=== PATIENT | female | born 1935 | race Caucasian/White ===

== ENCOUNTER → 2016-06-21 | Outpatient (CLI) | payer BC ==
[~2016-06-21] MED LIST: ASCO1CAP3 PO; ASPI81TA28 PO; CALC1TAB25 PO; CLC150 PO; DICL1GEL34 TOP; METO-452 PO; NF656 TD; SIMV-151 PO; TPRSR/25 PO; TROL10LO TOP; TUMERIC PO; VITA400C15 PO; VITACAP37 PO
--- NOTE | 2016-06-21 16:25 | DIAGNOSTIC IMAGING REPORT ---
LEFT HAND MIN 3 VIEWS ROUTINE CLINICAL HISTORY: POLYARTHRALGIA pain COMPARISON: None. DISCUSSION: Generalized degenerative change. Osteopenia. Significant degenerative change of the distal interphalangeal joints as well as the first and to lesser extent second carpometacarpal joint. There is no evidence for soft tissue swelling. IMPRESSION: Considerable degenerative change. Osteopenia. Electronically signed by: Arsh Leonard M.D. 06/21/2016 4:24 PM Dictated Date/Time: 06/21/2016 4:24 PM
--- NOTE | 2016-06-21 16:25 | DIAGNOSTIC IMAGING REPORT ---
RIGHT ELBOW MIN 3 VIEWS ROUTINE CLINICAL HISTORY: Right elbow pain. COMPARISON: None FINDINGS: Alignment of the right elbow is anatomic. There is no joint effusion. No fracture is identified. There is minimal narrowing of the radiocapitellar joint space. There is mild soft tissue swelling overlying olecranon. IMPRESSION: 1. No acute fracture or joint effusion of the right elbow. 2. Minimal soft tissue swelling overlying the olecranon. Electronically signed by: Alvarez Valdez M.D. 06/21/2016 4:24 PM Dictated Date/Time: 06/21/2016 4:23 PM
--- NOTE | 2016-06-21 16:25 | DIAGNOSTIC IMAGING REPORT ---
RIGHT FOREARM 2 VIEWS ROUTINE CLINICAL HISTORY: POLYARTHRALGIA Right pain COMPARISON: None. DISCUSSION: The bones and joint spaces appear intact. There is no evidence of fracture, dislocation or bony disease. There is no evidence for soft tissue swelling. IMPRESSION: Negative study. Electronically signed by: Arsh Leonard M.D. 06/21/2016 4:23 PM Dictated Date/Time: 06/21/2016 4:23 PM
--- NOTE | 2016-06-21 16:26 | DIAGNOSTIC IMAGING REPORT ---
LEFT ELBOW MIN 3 VIEWS ROUTINE CLINICAL HISTORY: Left elbow pain. COMPARISON: None FINDINGS: Alignment of left elbow is anatomic. There is no fracture. There is no evidence for joint effusion. No osseous lesion is identified. There is minimal soft tissue swelling overlying olecranon. IMPRESSION: 1. No acute fracture or joint effusion of the left elbow. 2. Minimal soft tissue swelling overlying the olecranon. Electronically signed by: Alvarez Valdez M.D. 06/21/2016 4:25 PM Dictated Date/Time: 06/21/2016 4:24 PM
--- NOTE | 2016-06-21 16:29 | DIAGNOSTIC IMAGING REPORT ---
RIGHT HAND MIN 3 VIEWS ROUTINE CLINICAL HISTORY: POLYARTHRALGIA Right pain COMPARISON: None. DISCUSSION: Generalized degenerative change. Osteopenia. Considerable degenerative change first as well as second carpal metacarpal joint. There is no evidence for soft tissue swelling. IMPRESSION: Considerable degenerative change. Osteopenia. Electronically signed by: Arsh Leonard M.D. 06/21/2016 4:28 PM Dictated Date/Time: 06/21/2016 4:24 PM
--- NOTE | 2016-06-21 16:30 | DIAGNOSTIC IMAGING REPORT ---
LEFT FOREARM 2 VIEWS ROUTINE CLINICAL HISTORY: POLYARTHRALGIA pain COMPARISON: None. DISCUSSION: The bones and joint spaces appear intact. There is no evidence of fracture, dislocation or bony disease. There is no evidence for soft tissue swelling. IMPRESSION: Negative study. Electronically signed by: Arsh Leonard M.D. 06/21/2016 4:28 PM Dictated Date/Time: 06/21/2016 4:28 PM
== END | disposition home or self-care (01) ==
LOC: C.LABBC 13:23
PROVIDERS: ATTEND Family Medicine
DX: M25.50 Pain in unspecified joint (principal); M19.042 Primary osteoarthritis, left hand; M19.041 Primary osteoarthritis, right hand; M85.842 Other specified disorders of bone density and structure, left hand; M85.841 Other specified disorders of bone density and structure, right hand

== ENCOUNTER 2016-08-15 23:57 | Emergency (ER) | payer BC ==
[~2016-08-15] VITALS: Ht 162.6 cm; Wt 53.6 kg
[~2016-08-15 23:57] MED LIST changes: -CLC150 PO; -METO-452 PO; -NF656 TD; -TROL10LO TOP; -TUMERIC PO; -VITACAP37 PO
[2016-08-16 00:03] VITALS: TEMP 36.5; O2SAT 97; Ht 162.6 cm; Wt 53.6 kg
[2016-08-16 00:28] LABS: BASO % 0.3 %; BASO ABS # 0.02 K/uL (0-0.2); COMPLETE YES; HEMATOCRIT 38.7 % (37-47); IG% 0.3 %; LYMPH % 28.1 %; LYMPH ABS # 1.96 K/uL (1.2-3.4); MEAN CELL VOLUME 91.7 fL (80-100); MEAN CORPUSCULAR HEMOGLOBIN 32.2 pg (25-34); MEAN CORPUSCULAR HGB CONC 35.1 g/dl (32-36); MEAN PLATELET VOLUME 11.4 fL (7.4-10.4); MONO % 11.3 %; PLATELET COUNT 222 K/uL (130-400); RED BLOOD COUNT 4.22 M/uL (4.2-5.4); WHITE BLOOD COUNT 6.98 K/uL (4.8-10.8)
[2016-08-16 00:37] LABS: PROTHROMBIN TIME (PATIENT) 10.6 SECONDS (9.0-12.0)
--- NOTE | 2016-08-16 00:37 | EMERGENCY ROOM VISIT NOTE ---
History Report prepared by Dariela: Jeannie Garner Under the Supervision of: Dr. Yash Sandoval M.D. First contact with patient: 00:07 Chief Complaint: CARDIAC ASSESSMENT Stated Complaint: ABDOMINAL PAIN/CHEST PAIN Nursing Triage Summary: Patient arrived ALS for evaluation of "not feeling well" for days. Patient reports an unusual feeling in stomach, denies it as pain and it sometimes it goes into her chest. Patient had drs liliana scheduled for tomorrow morning but stated she couldn't wait that long. Denies any other symptoms. History of Present Illness The patient is a 81 year old female who presents to the Emergency Room with complaints of intermittent irregular heart beat beginning 2 days ago. The patient states that she has an appointment with Dr. Goodrich tomorrow morning and she called him today when she began to experience symptoms. She notes that he advised that she wait until her appointment tomorrow but after prolonged symptoms she decided to come in to the ED. She reports that over the last 2 days she has been feeling her heart beating irregularly. She notes that she took Eliquis 2 days ago after feeling her atrial fibrillation act up and experienced dizziness that she has had before after taking Eliquis in the hospital. The patient states that she has also been having a discomfort in her stomach and chest that she reports is not painful at all. She notes that she has been taking Metoprolol and is taking Tumeric 3 times a day that she believes may be causing her symptoms. She reports that she got a flu shot 1 year ago that has caused her to have muscular pains as well. She denies any chest pain. Source of History: patient Onset: 2 days ago Position: other (irregular heart beat) Timing: intermittent Associated Symptoms: No chest pain Note: She complains of abdominal discomfort radiating to the chest and dizziness. Review of Systems See HPI for pertinent positives & negatives. A total of 10 systems reviewed and were otherwise negative. Past Medical & Surgical Medical Problems: (1) Aortic Valve Disorder (2) Atrial fibrillation with rapid ventricular response (3) History of repair of coarctation of aorta (4) Hyperlipidemia Nec/Nos (5) Hypertension Nos (6) Patent ductus arteriosus (7) Tubal Ligation Status Family History FHx: cancer FHx: heart disease Social History Smoking Status: Never Smoker Alcohol Use: none Drug Use: none Marital Status: Housing Status: lives alone Occupation Status: retired Current/Historical Medications Scheduled Ascorbic Acid (Vitamin C), 500 MG PO DAILY Aspirin (Aspirin Ec), 81 MG PO DAILY Calcium W/ Magnesium (Calcium Magnesium 750), 1 TAB PO DAILY Metoprolol Succinate (Metoprolol Succinate ER), 25 MG PO BID Vitamin E (E-400), 400 UNITS PO DAILY [Tumeric], Unknown Dose PO DAILY Scheduled PRN Trolamine Salicylate (Aspercreme), 1 APPLN TOP DIRECTED PRN for Pain Allergies Coded Allergies: Epinephrine (Verified Allergy, Severe, TACHYCARDIA, 08/16/16) Apixaban (Verified Allergy, Unknown, WEAKNESS/DIFFICULTY BREATHING, 08/16/16 ) Honey (Verified Allergy, Unknown, ANAPHYLAXIS, 08/16/16) wild flower honey Penicillins (Verified Allergy, Unknown, UNKNOWN, 08/16/16) Flu Virus Vaccine (Verified Adverse Reaction, Intermediate, "ARTHRITIS SYMPTOMS", 08/16/16) Cyclobenzaprine (Verified Adverse Reaction, Unknown, lethargy, 08/16/16) Physical Exam Vital Signs Date Time Temp Pulse Resp B/P (MAP) Pulse Ox O2 Delivery O2 Flow Rate FiO2 08/16/16 01:30 65 18 142/52 96 Room Air 08/16/16 00:46 62 08/16/16 00:03 36.5 67 18 156/73 97 Room Air 08/16/16 00:03 97 Room Air Physical Exam GENERAL: Patient is elderly appearing and in no acute distress. HEENT: No acute trauma, normocephalic atraumatic, mucous membranes moist, no nasal congestion, no scleral icterus. NECK: No stridor, no adenopathy, no meningismus, trachea is midline. LUNGS: No dyspnea. Clear to auscultation and equal bilaterally. No wheeze, no rhonchi. HEART: Regular rate and rhythm. No rubs, gallops appreciated. Systolic murmur. ABDOMEN: Soft, nontender, bowel sounds positive, no masses appreciated, no peritonitis. BACK: No midline tenderness, no CVA tenderness EXTREMITIES: Normal motion all extremities, no cyanosis, no edema. NEUROLOGIC: Alert and oriented, no acute motor or sensory deficits, no focal weakness, cranial nerves grossly intact. SKIN: No rash, no jaundice, no diaphoresis. Medical Decision & Procedures ER Provider Diagnostic Interpretation: X ray results are stated below per my interpretation: Chest: 1 view: No infiltrate, no effusion, normal cardiac border. Scarring/ atelectasis in left lower lobe similar to previous chest x-ray. Laboratory Results 08/15/16 23:50 Red Blood Count 4.22, Mean Corpuscular Volume 91.7, Mean Corpuscular Hemoglobin 32.2, Mean Corpuscular Hemoglobin Concent 35.1, Mean Platelet Volume 11.4, Neutrophils (%) (Auto) 59.0, Lymphocytes (%) (Auto) 28.1, Monocytes (%) (Auto) 11.3, Eosinophils (%) (Auto) 1.0, Basophils (%) (Auto) 0.3, Neutrophils # (Auto ) 4.12, Lymphocytes # (Auto) 1.96, Monocytes # (Auto) 0.79, Eosinophils # (Auto ) 0.07, Basophils # (Auto) 0.02 08/15/16 23:50 Test 08/15/16 23:50 White Blood Count 6.98 K/uL (4.8-10.8) Red Blood Count 4.22 M/uL (4.2-5.4) Hemoglobin 13.6 g/dL (12.0-16.0) Hematocrit 38.7 % (37-47) Mean Corpuscular Volume 91.7 fL (80-100) Mean Corpuscular Hemoglobin 32.2 pg (25-34) Mean Corpuscular Hemoglobin Concent 35.1 g/dl (32-36) Platelet Count 222 K/uL (130-400) Mean Platelet Volume 11.4 fL (7.4-10.4) Neutrophils (%) (Auto) 59.0 % Lymphocytes (%) (Auto) 28.1 % Monocytes (%) (Auto) 11.3 % Eosinophils (%) (Auto) 1.0 % Basophils (%) (Auto) 0.3 % Neutrophils # (Auto) 4.12 K/uL (1.4-6.5) Lymphocytes # (Auto) 1.96 K/uL (1.2-3.4) Monocytes # (Auto) 0.79 K/uL (0.11-0.59) Eosinophils # (Auto) 0.07 K/uL (0-0.5) Basophils # (Auto) 0.02 K/uL (0-0.2) RDW Standard Deviation 43.7 fL (36.4-46.3) RDW Coefficient of Variation 13.0 % (11.5-14.5) Immature Granulocyte % (Auto) 0.3 % Immature Granulocyte # (Auto) 0.02 K/uL (0.00-0.02) Prothrombin Time 10.6 SECONDS (9.0-12.0) Prothromb Time International Ratio 1.0 (0.9-1.1) Activated Partial Thromboplast Time 26.0 SECONDS (21.0-31.0) Partial Thromboplastin Ratio 1.0 Anion Gap 9.0 mmol/L (3-11) Est Creatinine Clear Calc Drug Dose 59.3 ml/min Estimated GFR () 97.5 Estimated GFR (Non- 84.1 BUN/Creatinine Ratio 17.4 (10-20) Calcium Level 9.4 mg/dl (8.5-10.1) Magnesium Level 2.2 mg/dl (1.8-2.4) Total Creatine Kinase 99 U/L (26-192) Creatine Kinase MB 2.3 ng/ml (0.5-3.6) Creatine Kinase MB Ratio 2.3 (0-3.0) Troponin I 0.018 ng/ml (0-0.045) Laboratory results as reviewed by me. ECG Indication: other (irregular heart rate) Rate (beats per minute): 65 Rhythm: normal sinus Findings: 1st degree AV block, no acute ischemic change, no ectopy ED Course 0007: The patient was evaluated in room A12B. A complete history and physical exam was performed. 0101: I reevaluated the patient. She refuses to stay in the hospital but will stay on the monitor for another half hour. She will follow up with her doctor tomorrow and understands that we have not completely ruled out a heart attack or other abnormality. 0130: Reevaluated the patient. Discussed results and discharge instructions: She verbalized understanding and agreement. The patient is ready for discharge. Medical Decision Differential: NSR, SVT, PACs, PVCs, Cardiac Dysrhythmia, Endocrine Dysfunction, Eletrolyte/Metabolic Abnormality, Pulmonary Embolism, Infectious, GI, amongst other pathologies entertained. Medication Reconciliation: I attest that I have personally reviewed the patient 's current medication list. Blood pressure screening: Patient was found to have an elevated blood pressure and was referred to their sales contracts analyst in the morning for recheck and further treatment. 81 yr old female arrives for evaluation of periodic palpitations over the last few days associated with fatigue, lack of sleep, and chest/body discomfort. Wide ranging complaints from bed not comfortable to room being too cold that seem impossible to rectify at this time. She has unremarkable work-up, no palpitations here. Advised coming in for monitoring and further evaluation. Admits not taking her full dose of metoprolol as regularly as she was supposed to. She refuses to stay for further monitoring even after extensive discussions. She has appointment in AM and is aware she can return at any time if worsening or other concerns. Impression Primary Impression: Intermittent palpitations Additional Impressions: Chest discomfort Fatigue Scribe Attestation The scribe's documentation has been prepared under my direction and personally reviewed by me in its entirety. I confirm that the note above accurately reflects all work, treatment, procedures, and medical decision making performed by me. Departure Information Dispostion Home / Self-Care Referrals Queta Martinez D.O. (PCP) Forms IMPORTANT VISIT INFORMATION Patient Instructions My [facility] Additional Instructions Keep your appointment with your sales contracts analyst for tomorrow morning. Return if you wish further evaluation, or call 911 if worsening symptoms. We are always here to help. Your blood pressure was elevated during this visit. This is quite common in many people who are being evaluated in the Emergency Department for many reasons. However, it is important that you have your Primary Care Provider recheck your blood pressure and discuss whether treatment will be needed. termination clerk elevated blood pressure can lead to strokes, heart attacks, kidney failure amongst other medical issues. If you develop severe headaches, chest pain, weakness in arms or legs, or other concerning symptoms call 911. Problem Qualifiers
[2016-08-16 00:45] LABS: BUN/CREATININE RATIO 17.4 (10-20); CALCIUM 9.4 mg/dl (8.5-10.1); CREATININE 0.63 mg/dl (0.60-1.20); MAGNESIUM 2.2 mg/dl (1.8-2.4); POTASSIUM 3.8 mmol/L (3.5-5.1)
[2016-08-16 00:50] LABS: CKMB/CK RATIO 2.3 (0-3.0)
[2016-08-16] MEDS ORDERED: TROL10LO TOP (01:09)
[2016-08-16] MEDS ORDERED: VITACAP37 PO (01:09)
[2016-08-16] MEDS ORDERED: TUMERIC PO (01:09)
[2016-08-16 01:30] VITALS: BP 142/52; PULSE 65; O2SAT 96
--- NOTE | 2016-08-16 07:29 | DIAGNOSTIC IMAGING REPORT ---
SINGLE VIEW CHEST CLINICAL HISTORY: Atypical chest pain. FINDINGS: An AP, portable, upright chest radiograph is compared to study dated 09/29/2015 and correlated with chest CT dated 09/05/2015. The examination is degraded by portable technique and patient rotation. The heart is enlarged and there is atherosclerotic calcification of the thoracic aorta. The pulmonary vasculature is noncongested. Chronic interstitial thickening is unchanged. There is chronic elevation of left hemidiaphragm and bibasilar atelectasis. No airspace consolidation or pleural effusion is identified. No pneumothorax is seen. The skeletal structures are osteopenic. The bony thorax is grossly intact. IMPRESSION: Cardiomegaly with no acute cardiopulmonary abnormality. Electronically signed by: Александр Rudd M.D. 08/16/2016 7:28 AM Dictated Date/Time: 08/16/2016 7:27 AM
[2016-11-04] MEDS ORDERED: CLC150 PO (15:21)
== END 2016-08-16 01:45 | disposition home or self-care (01) ==
LOC: EDBD 23:57 → C.EDA 23:59
DX: R00.2 Palpitations (principal); R07.89 Other chest pain; R53.83 Other fatigue; I44.0 Atrioventricular block, first degree; I48.91 Unspecified atrial fibrillation; E78.5 Hyperlipidemia, unspecified; I10 Essential (primary) hypertension; I35.9 Nonrheumatic aortic valve disorder, unspecified; Z98.51 Tubal ligation status; Z79.82 Long term (current) use of aspirin; Z79.899 Other long term (current) drug therapy; Z88.0 Allergy status to penicillin; Z88.8 Allergy status to other drugs, medicaments and biological substances; Z91.018 Allergy to other foods; Z80.9 Family history of malignant neoplasm, unspecified; Z82.49 Family history of ischemic heart disease and other diseases of the circulatory system

== ENCOUNTER → 2016-11-16 | Outpatient (CLI) | payer BC ==
[~2016-11-16] MED LIST changes: +CLC150 PO; -DICL1GEL34 TOP; -SIMV-151 PO; +TROL10LO TOP; +TUMERIC PO; -VITA400C15 PO; +VITACAP37 PO
[2016-11-16 14:14] LABS: BLOOD UREA NITROGEN 13 mg/dl (7-18); BUN/CREATININE RATIO 19.6 (10-20); CARBON DIOXIDE 27 mmol/L (21-32); CHLORIDE 103 mmol/L (98-107); CREATININE 0.67 mg/dl (0.60-1.20); GLUCOSE 89 mg/dl (70-99); MAGNESIUM 2.3 mg/dl (1.8-2.4); POTASSIUM 4.5 mmol/L (3.5-5.1); SODIUM 136 mmol/L (136-145)
== END | disposition home or self-care (01) ==
LOC: C.LABBC 11:19
PROVIDERS: ATTEND Internal Medicine Cardiovascular Disease
DX: E87.6 Hypokalemia (principal)

== ENCOUNTER 2016-12-20 06:42 | Inpatient (IN) | payer BC ==
[~2016-12-20] VITALS: Ht 162.6 cm; Wt 52.5 kg
[2016-12-20] MEDS ORDERED: SODIUM CHLORIDE 0.9% 250ML 250 ML IV STA ×2 (06:59→09:19)
[2016-12-20] MEDS ORDERED: DILTIAZEM HCL 5 MG/ML 5 ML VIAL IV STA ×2 (06:59→09:08)
--- NOTE | 2016-12-20 07:09 | EMERGENCY ROOM VISIT NOTE ---
History Report prepared by Dariela: Glo Szymanski Under the Supervision of: Dr. Sandra López M.D. First contact with patient: 06:45 Chief Complaint: WEAKNESS Stated Complaint: WEAKNESS/TACHYCARDIA Nursing Triage Summary: Pt reports waking this AM and her heart was racing and had upper back pain. Pt with +cardiac history and states she has had heart surgeries. Pt took her metoprolol and clonidine this AM. Feels weak. Had a recent dental procedure 1 week ago. History of Present Illness The patient is a 81 year old female who presents to the Emergency Room with complaints of constant weakness beginning this morning. The patient lives at home alone. She woke up this morning and was feeling very weak. She also reports upper back pain and feeling like her heart was racing. She states that this happens a couple of times a year. Typically it resolves when she takes her medications. The patient took her clonidine and metoprolol this morning without any relief of her symptoms. She still feels like her heart is racing, and she is still having upper back pain. She rates her current pain as a 4/10 in severity. The patient denies fevers and chest pain. She was feeling fine yesterday. She had a normal bowel movement yesterday and was eating normally yesterday. She does note some recent dysuria. The patient reports a history of a -flutter. Source of History: patient Onset: this morning Position: other (global) Symptom Intensity: 4/10 Quality: other (weakness) Timing: constant Associated Symptoms: + back pain, + urinary symptoms, No fevers, No chest pain, No diarrhea Note: Pt reports heart racing. Review of Systems See HPI for pertinent positives & negatives. A total of 10 systems reviewed and were otherwise negative. Past Medical & Surgical Medical Problems: (1) Afib (2) Aortic Valve Disorder (3) History of repair of coarctation of aorta (4) Hyperlipidemia Nec/Nos (5) Hypertension Nos (6) Patent ductus arteriosus (7) Tubal Ligation Status Family History FHx: cancer FHx: heart disease Social History Smoking Status: Never Smoker Alcohol Use: none Drug Use: none Marital Status: Housing Status: lives alone Occupation Status: retired Current/Historical Medications Scheduled Ascorbic Acid (Vitamin C), 500 MG PO DAILY Aspirin (Aspirin Ec), 81 MG PO DAILY Calcium W/ Magnesium (Calcium Magnesium 750), 1 TAB PO DAILY Metoprolol Succinate (Metoprolol Succinate ER), 25 MG PO BID Vitamin E (E-400), 400 UNITS PO DAILY [Tumeric], Unknown Dose PO DAILY Scheduled PRN Trolamine Salicylate (Aspercreme), 1 APPLN TOP DIRECTED PRN for Pain Allergies Coded Allergies: Epinephrine (Verified Allergy, Severe, TACHYCARDIA, 12/20/16) Apixaban (Verified Allergy, Unknown, WEAKNESS/DIFFICULTY BREATHING, ) Honey (Verified Allergy, Unknown, ANAPHYLAXIS, 12/20/16) wild flower honey Penicillins (Verified Allergy, Unknown, UNKNOWN, 12/20/16) Flu Virus Vaccine (Verified Adverse Reaction, Intermediate, "ARTHRITIS SYMPTOMS", 12/20/16) Cyclobenzaprine (Verified Adverse Reaction, Unknown, lethargy, 12/20/16) Physical Exam Vital Signs Date Time Temp Pulse Resp B/P (MAP) Pulse Ox O2 Delivery O2 Flow Rate FiO2 12/20/16 11:43 118 12/20/16 11:20 120 20 123/99 95 Room Air 12/20/16 11:12 103 12/20/16 11:03 129 109/62 12/20/16 10:15 120 118/89 97 Room Air 12/20/16 09:17 90 14 84/48 97 Room Air 12/20/16 09:09 123 19 94/69 12/20/16 08:00 90 18 90/51 12/20/16 07:27 79 99/52 95 Room Air 12/20/16 06:54 96 Room Air 12/20/16 06:50 128 12/20/16 06:47 36.5 135 16 121/90 95 Room Air Physical Exam Vital signs reviewed. General: Chronically ill female, in no significant distress. HEENT: No scleral icterus, PERRLA, neck supple. Atraumatic. Cardiovascular: Rapid rate and irregular rhythm, no extra sounds. Pulmonary: Clear to auscultation bilaterally, normal work of breathing. Abdomen: Soft, nontender, nondistended, positive bowel sounds. Musculoskeletal: Atraumatic, no peripheral edema. Neurologic: Patient awake alert and oriented x 3, full strength in all 4 extremities. Cranial nerves 2 through 12 grossly intact. Skin: Warm, dry, no rash Medical Decision & Procedures ER Provider Diagnostic Interpretation: Radiology results as stated below per my review and radiologist interpretation: CHEST ONE VIEW PORTABLE CLINICAL HISTORY: rapid atrial fib, weakness dyspnea COMPARISON STUDY: 11/04/2016 FINDINGS: Mild stable cardiomegaly. Prominent pulmonary vasculature compared to the prior study consistent with a component of congestive failure. Mild pulmonary hypertension may be present with slight fullness of the central pulmonary vasculature. IMPRESSION: 1. Developing congestive heart failure. 2. Developing pulmonary arterial hypertension. The above report was generated using voice recognition software. It may contain grammatical, syntax or spelling errors. Electronically signed by: Arsh Leonard M.D. 12/20/2016 7:16 AM Dictated Date/Time: 12/20/2016 7:15 AM Study: CT angiography of the chest HISTORY: Aneurysm. Dissection. FINDINGS: Pre and postcontrast enhanced CT scans of the chest with attention to the thoracic aorta demonstrate considerable tortuosity and ectasia of the thoracic aorta. findings of mild aneurysmal dilatation of the proximal descending thoracic aorta the maximum diameter of 3 cm. This is unchanged from the prior exam. There is a focal area of a moderate stenosis immediately proximal to the aneurysmal distention. This also is considered stable. No well-defined evidence for dissection is appreciated. This area of narrowing is approximately 1.6 cm in maximum diameter and is unchanged. Pulmonary vasculature enhances appropriately. There may be a component of mild pulmonary arterial hypertension. This is unchanged. A left renal cyst is stable. Moderate pulmonary vascular prominence suggesting a component of mild congestive failure IMPRESSION: 1. Generalized atherosclerotic change and ectasia thoracic aorta. 2. Moderate stenosis apex aortic arch with mild aneurysmal dilatation of the proximal descending thoracic aorta. 3. All findings are stable compared to the prior study with no new or interval change. 4. No evidence for dissection. 5. Mild components of congestive failure. 6. Mild pulmonary arterial hypertension unaltered from the prior study. Electronically signed by: Arsh Leonard M.D. 12/20/2016 10:23 AM Dictated Date/Time: 12/20/2016 10:09 AM Laboratory Results 12/20/16 06:50 Red Blood Count 4.04, Mean Corpuscular Volume 92.8, Mean Corpuscular Hemoglobin 31.4, Mean Corpuscular Hemoglobin Concent 33.9, Mean Platelet Volume 10.8, Neutrophils (%) (Auto) 71.6, Lymphocytes (%) (Auto) 19.1, Monocytes (%) (Auto) 7.8, Eosinophils (%) (Auto) 0.9, Basophils (%) (Auto) 0.3, Neutrophils # (Auto) 4.98, Lymphocytes # (Auto) 1.33, Monocytes # (Auto) 0.54, Eosinophils # (Auto) 0.06, Basophils # (Auto) 0.02 12/20/16 06:50 Test 12/20/16 06:50 12/20/16 07:04 12/20/16 08:15 White Blood Count 6.95 K/uL (4.8-10.8) Red Blood Count 4.04 M/uL (4.2-5.4) Hemoglobin 12.7 g/dL (12.0-16.0) Hematocrit 37.5 % (37-47) Mean Corpuscular Volume 92.8 fL (80-100) Mean Corpuscular Hemoglobin 31.4 pg (25-34) Mean Corpuscular Hemoglobin Concent 33.9 g/dl (32-36) Platelet Count 212 K/uL (130-400) Mean Platelet Volume 10.8 fL (7.4-10.4) Neutrophils (%) (Auto) 71.6 % Lymphocytes (%) (Auto) 19.1 % Monocytes (%) (Auto) 7.8 % Eosinophils (%) (Auto) 0.9 % Basophils (%) (Auto) 0.3 % Neutrophils # (Auto) 4.98 K/uL (1.4-6.5) Lymphocytes # (Auto) 1.33 K/uL (1.2-3.4) Monocytes # (Auto) 0.54 K/uL (0.11-0.59) Eosinophils # (Auto) 0.06 K/uL (0-0.5) Basophils # (Auto) 0.02 K/uL (0-0.2) RDW Standard Deviation 44.5 fL (36.4-46.3) RDW Coefficient of Variation 12.9 % (11.5-14.5) Immature Granulocyte % (Auto) 0.3 % Immature Granulocyte # (Auto) 0.02 K/uL (0.00-0.02) Prothrombin Time 10.7 SECONDS (9.0-12.0) Prothromb Time International Ratio 1.0 (0.9-1.1) Activated Partial Thromboplast Time 26.1 SECONDS (21.0-31.0) Partial Thromboplastin Ratio 1.0 Anion Gap 6.0 mmol/L (3-11) Est Creatinine Clear Calc Drug Dose 70.6 ml/min Estimated GFR () 102.6 Estimated GFR (Non- 88.5 BUN/Creatinine Ratio 25.0 (10-20) Calcium Level 8.3 mg/dl (8.5-10.1) Magnesium Level 2.1 mg/dl (1.8-2.4) Total Bilirubin 0.4 mg/dl (0.2-1) Direct Bilirubin 0.1 mg/dl (0-0.2) Aspartate Amino Transf (AST/SGOT) 15 U/L (15-37) Alanine Aminotransferase (ALT/SGPT) 17 U/L (12-78) Alkaline Phosphatase 51 U/L (45-117) Total Creatine Kinase 71 U/L (26-192) Creatine Kinase MB 1.4 ng/ml (0.5-3.6) Creatine Kinase MB Ratio 2.0 (0-3.0) Total Protein 6.8 gm/dl (6.4-8.2) Albumin 3.6 gm/dl (3.4-5.0) Thyroid Stimulating Hormone (TSH) 1.760 uIu/ml (0.300-4.500) Bedside Troponin I < 0.030 ng/ml (0-0.045) Urine Color YELLOW Urine Appearance CLEAR (CLEAR) Urine pH 6.5 (4.5-7.5) Urine Specific [place] 1.016 (1.000-1.030) Urine Protein NEG (NEG) Urine Glucose (UA) NEG (NEG) Urine Ketones 1+ (NEG) Urine Occult Blood NEG (NEG) Urine Nitrite NEG (NEG) Urine Bilirubin NEG (NEG) Urine Urobilinogen NEG (NEG) Urine Leukocyte Esterase SMALL (NEG) Urine WBC (Auto) 1-5 /hpf (0-5) Urine RBC (Auto) 0-4 /hpf (0-4) Urine Hyaline Casts (Auto) 1-5 /lpf (0-5) Urine Epithelial Cells (Auto) 20-30 /lpf (0-5) Urine Bacteria (Auto) NEG (NEG) Laboratory results per my review. Medications Administered Medications (Trade) Dose Ordered Sig/Stefanie Route Start Time Stop Time Status Last Admin Dose Admin Diltiazem HCl (Cardizem Inj) 20 mg NOW STAT IV 12/20/16 06:59 12/20/16 07:03 DC 12/20/16 07:16 20 MG Sodium Chloride 250 ml @ 999 mls/hr Q16M STAT IV 12/20/16 06:59 12/20/16 07:14 DC 12/20/16 07:05 999 MLS/HR Diltiazem HCl (Cardizem Inj) 10 mg NOW STAT IV 12/20/16 09:08 12/20/16 09:10 DC 12/20/16 09:15 10 MG Sodium Chloride 250 ml @ 999 mls/hr Q16M STAT IV 12/20/16 09:19 12/20/16 09:34 DC 12/20/16 09:30 999 MLS/HR Digoxin (Digoxin IV) 500 mcg STK-MED ONCE .ROUTE 12/20/16 10:54 12/20/16 10:55 DC 12/20/16 11:12 500 MCG Metoprolol Tartrate (Lopressor Iv) 5 mg STK-MED ONCE .ROUTE 12/20/16 10:54 12/20/16 10:55 DC 12/20/16 11:03 5 MG ECG Indication: back/shoulder pain, palpitations Rate (beats per minute): 134 Rhythm: atrial fibrillation (rapid) Findings: nonspecific-ST abn, no ectopy Comparison ECG Date: repeat ECG 12/20/16 Change: Repeat ECG reveals a-fib at 77 no ectopy, no ischemia, ST segments have resolved. ED Course 0651: Past medical records reviewed. The patient was evaluated in room A9B. A complete history and physical examination was performed. 0659: NSS 250 ml @ 999 mls/hr IV, Cardizem 20 mg IV 0908: Cardizem 10 mg IV 0919: NSS 250 ml @ 999 mls/hr IV 0922: I reassessed the patient at this time. She is feeling better and resting comfortably. I discussed the results and treatment plan with the patient. I answered all pertaining questions that she had. She expressed understanding and verbalized agreement. 0930: I spoke with Dr. Corbett. We discussed the patients case. She recommended a CT scan. The patient will be evaluated by the [facility] for further management. Medical Decision The patient is an 81 year old female who presents to the ED with complaints of weakness. Differentials include metabolic, infection, hypo/hyperglycemia, electrolyte abnormalities, cardiac sources, intracerebral event, toxicologic, neurologic, as well as others were entertained. This patient was evaluated and appeared to be in no significant distress. IV access was obtained and laboratory work was drawn. Patient was placed on the environmental monitoring specialist and found to be in a rapid atrial fibrillation. Patient was given IV Cardizem 10 mg with significant improvement in heart rate. Patient's repeat EKG shows no acute ischemia. She did gradually return to a rapid atrial fibrillation and was given an additional 10 mg of IV Cardizem. She did have periods of hypotension and required IV normal saline solution 250 mL bolus 2. Patient's laboratory work is otherwise unrevealing. Due to the hypotension and return of the rapid atrial fibrillation she was discussed with the hospitalist service, Dr. Corbett. She has recommended a CT angiogram of the chest to rule out aortic pathology. The patient has had previous repair of a coarctation. This study is negative. Patient will be evaluated by the hospitalist service for further management. Medication Reconcilliation Current Medication List: was personally reviewed by md Blood Pressure Screening Patient's blood pressure: Low blood pressure Consults Time Called: 918 Consulting Physician: Dr. Corbett Returned Call: [phone] Corbett. We discussed the patients case. She recommended a CT scan. The patient will be evaluated by the [facility] for further management. Impression Primary Impression: Atrial fibrillation with rapid ventricular response Critical Care I have personally spent greater than 35 minutes of critical care time in the direct management of this patient. This includes bedside care, interpretation of diagnostic studies, and testing, discussion with consultants, patient, and family members, and other required patient management activities. This 35 minutes is in excess of all separately billable procedures. Scribe Attestation The scribe's documentation has been prepared under my direction and personally reviewed by me in its entirety. I confirm that the note above accurately reflects all work, treatment, procedures, and medical decision making performed by me. Departure Information Dispostion Being Evaluated By Hospitalist Referrals Queta Martinez D.O. (PCP) Patient Instructions My [facility]
[2016-12-20 07:13] LABS: BASO % 0.3 %; BASO ABS # 0.02 K/uL (0-0.2); COMPLETE YES; EOS % 0.9 %; HEMATOCRIT 37.5 % (37-47); IG% 0.3 %; LYMPH % 19.1 %; LYMPH ABS # 1.33 K/uL (1.2-3.4); MEAN CELL VOLUME 92.8 fL (80-100); MEAN CORPUSCULAR HEMOGLOBIN 31.4 pg (25-34); MEAN CORPUSCULAR HGB CONC 33.9 g/dl (32-36); MEAN PLATELET VOLUME 10.8 fL (7.4-10.4); MONO % 7.8 %; NEUT % 71.6 %; PLATELET COUNT 212 K/uL (130-400); RED BLOOD COUNT 4.04 M/uL (4.2-5.4); WHITE BLOOD COUNT 6.95 K/uL (4.8-10.8)
--- NOTE | 2016-12-20 07:17 | DIAGNOSTIC IMAGING REPORT ---
CHEST ONE VIEW PORTABLE CLINICAL HISTORY: rapid atrial fib, weakness dyspnea COMPARISON STUDY: 11/04/2016 FINDINGS: Mild stable cardiomegaly. Prominent pulmonary vasculature compared to the prior study consistent with a component of congestive failure. Mild pulmonary hypertension may be present with slight fullness of the central pulmonary vasculature. IMPRESSION: 1. Developing congestive heart failure. 2. Developing pulmonary arterial hypertension. The above report was generated using voice recognition software. It may contain grammatical, syntax or spelling errors. Electronically signed by: Arsh Leonard M.D. 12/20/2016 7:16 AM Dictated Date/Time: 12/20/2016 7:15 AM
[2016-12-20 07:31] LABS: CALCIUM 8.3 mg/dl (8.5-10.1); CREATININE 0.54 mg/dl (0.60-1.20); MAGNESIUM 2.1 mg/dl (1.8-2.4); POTASSIUM 3.8 mmol/L (3.5-5.1)
[2016-12-20 07:42] LABS: THYROID STIMULATING HORMONE 1.76 uIu/ml (0.300-4.500)
[2016-12-20 08:40] LABS: URINE APPEARANCE CLEAR (CLEAR); URINE BILIRUBIN NEG (NEG); URINE COLOR YELLOW; URINE EPITHELIAL CELL AUTO 20-30 /lpf (0-5); URINE NITRITE NEG (NEG); URINE PH 6.5 (4.5-7.5); URINE SPECIFIC GRAVITY 1.016 (1.000-1.030); UROBILINOGEN NEG (NEG); ZZUR CULT IF INDIC CLEAN CATCH NO
[2016-12-20 08:40] LABS: PROTHROMBIN TIME (PATIENT) 10.7 SECONDS (9.0-12.0)
[2016-12-20 08:48] LABS: MANUAL MICROSCOPIC REQUIRED? NO; REVIEW REQ? NO
[2016-12-20] MEDS ORDERED: OPTIRAY 320 IV PRN (09:45)
--- NOTE | 2016-12-20 10:24 | DIAGNOSTIC IMAGING REPORT ---
Study: CT angiography of the chest HISTORY: Aneurysm. Dissection. FINDINGS: Pre and postcontrast enhanced CT scans of the chest with attention to the thoracic aorta demonstrate considerable tortuosity and ectasia of the thoracic aorta. findings of mild aneurysmal dilatation of the proximal descending thoracic aorta the maximum diameter of 3 cm. This is unchanged from the prior exam. There is a focal area of a moderate stenosis immediately proximal to the aneurysmal distention. This also is considered stable. No well-defined evidence for dissection is appreciated. This area of narrowing is approximately 1.6 cm in maximum diameter and is unchanged. Pulmonary vasculature enhances appropriately. There may be a component of mild pulmonary arterial hypertension. This is unchanged. A left renal cyst is stable. Moderate pulmonary vascular prominence suggesting a component of mild congestive failure IMPRESSION: 1. Generalized atherosclerotic change and ectasia thoracic aorta. 2. Moderate stenosis apex aortic arch with mild aneurysmal dilatation of the proximal descending thoracic aorta. 3. All findings are stable compared to the prior study with no new or interval change. 4. No evidence for dissection. 5. Mild components of congestive failure. 6. Mild pulmonary arterial hypertension unaltered from the prior study. Electronically signed by: Arsh Leonard M.D. 12/20/2016 10:23 AM Dictated Date/Time: 12/20/2016 10:09 AM
[2016-12-20] MEDS ORDERED: DIGOXIN IV 250 MCG in SYRINGE 9 ML IV STA (10:49)
[2016-12-20] MEDS ORDERED: METOPROLOL TARTRATE 1 MG/ML VIAL IV STA (10:49)
[2016-12-20] MEDS ORDERED: METOPROLOL TARTRATE 1 MG/ML VIAL ONE (10:54)
[2016-12-20] MEDS ORDERED: DIGOXIN INJ 500 MCG/2 ML AMP ONE (10:54)
[2016-12-20] MEDS ORDERED: LORAZEPAM 2 MG/ML 1 ML VIAL IV PRN (12:45)
[2016-12-20] MEDS ORDERED: ONDANSETRON INJ 2 MG/ML 2 ML VIAL IV PRN (12:45)
[2016-12-20] MEDS ORDERED: ACETAMINOPHEN 325 MG TAB PO PRN (12:45)
[2016-12-20] MEDS ORDERED: METOPROLOL TARTRATE 1 MG/ML VIAL IV. PRN (12:45)
[2016-12-20 12:50] VITALS: BP 93/80; PULSE 69; TEMP 36.7; Ht 162.6 cm; Wt 52.5 kg
--- NOTE | 2016-12-20 13:42 | History and Physical ---
History & Physical Date & Time of Service: Dec 20, 2016 at 13:22 Chief Complaint: Weakness/Tachycardia Primary Care Physician: Queta Martinez D.O. History of Present Illness Source: patient Patient is a 81 y/o female, with PMHx of paroxysmal a.fib, HTN, hypercholesterolemia, and anxiety/depression, who presented to the ED because of complaints of back pain and palpitations. She was in her normal state of health until yesterday when she started to experience these symptoms. Patient denies any other associated symptoms. She was most recently admitted to [facility] on 11/04/16 due to a.fib w/ RVR. She was treated with Digoxin and Metoprolol and discharged home the same day. She follows w/ Dr. Barajas. Patient notes at that time she had a dental procedure prior to admission and was not placed on any antibiotics. When she was admitted to the hospital she was placed on antibiotic therapy. She recently had another dental procedure 1 week ago- she was not placed on any antibiotics, but feels she should be on it and this was the cause of her RVR today. Patient denies any fever, chills, sweats, lightheadedness, dizziness, vision changes, CP, edema, SOB, wheezing, cough, abdominal pain, nausea, vomiting, diarrhea, urinary symptoms, melena, numbness/tingling, weakness, anxiety/depression, active bleeding, or new skin discoloration/ changes. Past Medical/Surgical History PMHx: s/p repair of a coarctation and PDA -- 1953 Moderate aortic stenosis Moderate aortic insufficiency LVH HTN Hypercholesterolemia Paroxysmal atrial fibrillation Anxiety/depression PSHx: Appendectomy Cholecystectomy History of vein stripping Tubal ligation Hyperglycemia Family History FHx: cancer FHx: heart disease Social History Smoking Status: Never Smoker Drug Use: none Marital Status: Housing status: lives alone Occupational Status: retired Immunizations History of Influenza Vaccine: Yes History of Tetanus Vaccine?: UNK History of Pneumococcal: Yes Pneumococcal Date: Jan 03, 2012 History of Hepatitis B Vaccine: No Multi-Drug Resistant Organisms History of MDRO: No Allergies Coded Allergies: Epinephrine (Verified Allergy, Severe, TACHYCARDIA, 12/20/16) Apixaban (Verified Allergy, Unknown, WEAKNESS/DIFFICULTY BREATHING, ) Honey (Verified Allergy, Unknown, ANAPHYLAXIS, 12/20/16) wild flower honey Penicillins (Verified Allergy, Unknown, UNKNOWN, 12/20/16) Flu Virus Vaccine (Verified Adverse Reaction, Intermediate, "ARTHRITIS SYMPTOMS", 12/20/16) Cyclobenzaprine (Verified Adverse Reaction, Unknown, lethargy, 12/20/16) Home Medications Scheduled Ascorbic Acid (Vitamin C), 500 MG PO DAILY Aspirin (Aspirin Ec), 81 MG PO DAILY Calcium W/ Magnesium (Calcium Magnesium 750), 1 TAB PO DAILY Metoprolol Succinate (Metoprolol Succinate ER), 25 MG PO BID Vitamin E (E-400), 400 UNITS PO DAILY [Tumeric], Unknown Dose PO DAILY Scheduled PRN Trolamine Salicylate (Aspercreme), 1 APPLN TOP DIRECTED PRN for Pain Physical Exam Vital Signs Date Time Temp Pulse Resp B/P (MAP) Pulse Ox O2 Delivery O2 Flow Rate FiO2 12/20/16 12:50 Room Air 12/20/16 11:43 118 12/20/16 11:20 120 20 123/99 95 Room Air 12/20/16 11:12 103 12/20/16 11:03 129 109/62 12/20/16 10:15 120 118/89 97 Room Air 12/20/16 09:17 90 14 84/48 97 Room Air 12/20/16 09:09 123 19 94/69 12/20/16 08:00 90 18 90/51 12/20/16 07:27 79 99/52 95 Room Air 12/20/16 06:54 96 Room Air 12/20/16 06:50 128 12/20/16 06:47 36.5 135 16 121/90 95 Room Air General Appearance: no apparent distress Head: normocephalic, atraumatic Eyes: PERRL ENT: hearing grossly normal Neck: supple Respiratory/Chest: lungs clear, no respiratory distress, no accessory muscle use Cardiovascular: + tachycardia, + systolic murmur, + irregularly irregular Abdomen/GI: normal bowel sounds, non tender, soft Back: normal inspection Extremities/Musculoskelatal: no calf tenderness, no pedal edema Neurologic/Psych: alert, oriented x 3, + pertinent finding (anxious ) Skin: normal color, warm/dry, no rash Diagnostics Laboratory Results Results Past 24 Hours Test 12/20/16 06:50 12/20/16 07:04 12/20/16 08:15 Range/Units White Blood Count 6.95 4.8-10.8 K/uL Red Blood Count 4.04 4.2-5.4 M/uL Hemoglobin 12.7 12.0-16.0 g/dL Hematocrit 37.5 37-47 % Mean Corpuscular Volume 92.8 80-100 fL Mean Corpuscular Hemoglobin 31.4 25-34 pg Mean Corpuscular Hemoglobin Concent 33.9 32-36 g/dl Platelet Count 212 130-400 K/uL Mean Platelet Volume 10.8 7.4-10.4 fL Neutrophils (%) (Auto) 71.6 % Lymphocytes (%) (Auto) 19.1 % Monocytes (%) (Auto) 7.8 % Eosinophils (%) (Auto) 0.9 % Basophils (%) (Auto) 0.3 % Neutrophils # (Auto) 4.98 1.4-6.5 K/uL Lymphocytes # (Auto) 1.33 1.2-3.4 K/uL Monocytes # (Auto) 0.54 0.11-0.59 K/uL Eosinophils # (Auto) 0.06 0-0.5 K/uL Basophils # (Auto) 0.02 0-0.2 K/uL RDW Standard Deviation 44.5 36.4-46.3 fL RDW Coefficient of Variation 12.9 11.5-14.5 % Immature Granulocyte % (Auto) 0.3 % Immature Granulocyte # (Auto) 0.02 0.00-0.02 K/uL Prothrombin Time 10.7 9.0-12.0 SECONDS Prothromb Time International Ratio 1.0 0.9-1.1 Activated Partial Thromboplast Time 26.1 21.0-31.0 SECONDS Partial Thromboplastin Ratio 1.0 Sodium Level 136 136-145 mmol/L Potassium Level 3.8 3.5-5.1 mmol/L Chloride Level 105 98-107 mmol/L Carbon Dioxide Level 25 21-32 mmol/L Anion Gap 6.0 3-11 mmol/L Blood Urea Nitrogen 13 7-18 mg/dl Creatinine 0.54 0.60-1.20 mg/dl Est Creatinine Clear Calc Drug Dose 70.6 ml/min Estimated GFR () 102.6 Estimated GFR (Non- 88.5 BUN/Creatinine Ratio 25.0 10-20 Random Glucose 110 70-99 mg/dl Calcium Level 8.3 8.5-10.1 mg/dl Magnesium Level 2.1 1.8-2.4 mg/dl Total Bilirubin 0.4 0.2-1 mg/dl Direct Bilirubin 0.1 0-0.2 mg/dl Aspartate Amino Transf (AST/SGOT) 15 15-37 U/L Alanine Aminotransferase (ALT/SGPT) 17 12-78 U/L Alkaline Phosphatase 51 45-117 U/L Total Creatine Kinase 71 26-192 U/L Creatine Kinase MB 1.4 0.5-3.6 ng/ml Creatine Kinase MB Ratio 2.0 0-3.0 Total Protein 6.8 6.4-8.2 gm/dl Albumin 3.6 3.4-5.0 gm/dl Thyroid Stimulating Hormone (TSH) 1.760 0.300-4.500 uIu/ml Bedside Troponin I < 0.030 0-0.045 ng/ml Urine Color YELLOW Urine Appearance CLEAR CLEAR Urine pH 6.5 4.5-7.5 Urine Specific [place] 1.016 1.000-1.030 Urine Protein NEG NEG Urine Glucose (UA) NEG NEG Urine Ketones 1+ NEG Urine Occult Blood NEG NEG Urine Nitrite NEG NEG Urine Bilirubin NEG NEG Urine Urobilinogen NEG NEG Urine Leukocyte Esterase SMALL NEG Urine WBC (Auto) 1-5 0-5 /hpf Urine RBC (Auto) 0-4 0-4 /hpf Urine Hyaline Casts (Auto) 1-5 0-5 /lpf Urine Epithelial Cells (Auto) 20-30 0-5 /lpf Urine Bacteria (Auto) NEG NEG Diagnostic Radiology CHEST ONE VIEW PORTABLE CLINICAL HISTORY: rapid atrial fib, weakness dyspnea COMPARISON STUDY: 11/04/2016 FINDINGS: Mild stable cardiomegaly. Prominent pulmonary vasculature compared to the prior study consistent with a component of congestive failure. Mild pulmonary hypertension may be present with slight fullness of the central pulmonary vasculature. IMPRESSION: 1. Developing congestive heart failure. 2. Developing pulmonary arterial hypertension. The above report was generated using voice recognition software. It may contain grammatical, syntax or spelling errors. Electronically signed by: Arsh Leonard M.D. 12/20/2016 7:16 AM Dictated Date/Time: 12/20/2016 7:15 AM The status of this report is Signed. Draft = Not yet reviewed or approved by Radiologist. Signed = Reviewed and approved by Radiologist. Study: CT angiography of the chest HISTORY: Aneurysm. Dissection. FINDINGS: Pre and postcontrast enhanced CT scans of the chest with attention to the thoracic aorta demonstrate considerable tortuosity and ectasia of the thoracic aorta. findings of mild aneurysmal dilatation of the proximal descending thoracic aorta the maximum diameter of 3 cm. This is unchanged from the prior exam. There is a focal area of a moderate stenosis immediately proximal to the aneurysmal distention. This also is considered stable. No well-defined evidence for dissection is appreciated. This area of narrowing is approximately 1.6 cm in maximum diameter and is unchanged. Pulmonary vasculature enhances appropriately. There may be a component of mild pulmonary arterial hypertension. This is unchanged. A left renal cyst is stable. Moderate pulmonary vascular prominence suggesting a component of mild congestive failure IMPRESSION: 1. Generalized atherosclerotic change and ectasia thoracic aorta. 2. Moderate stenosis apex aortic arch with mild aneurysmal dilatation of the proximal descending thoracic aorta. 3. All findings are stable compared to the prior study with no new or interval change. 4. No evidence for dissection. 5. Mild components of congestive failure. 6. Mild pulmonary arterial hypertension unaltered from the prior study. Electronically signed by: Arsh Leonard M.D. 12/20/2016 10:23 AM Dictated Date/Time: 12/20/2016 10:09 AM The status of this report is Signed. Draft = Not yet reviewed or approved by Radiologist. Signed = Reviewed and approved by Radiologist. EKG CHANDAN CELIS ID:[id number] 20-DEC-2016 06:45:49 [facility] Atrial fibrillation with rapid ventricular response Nonspecific ST abnormality Abnormal ECG When compared with ECG of 04-NOV-2016 06:56, No significant change was found 25mm/s 10mm/mV 150Hz 8.0 SP2 12SL 241 TOMY: 13 Referred by: Referred Self Unconfirmed Vent. rate 134 BPM DC interval * ms QRS duration 88 ms QT/QTc 312/465 ms P-R-T axes * 26 5 1935 (81 yr) Female 59in 1lb Room: Loc:15 Business Proposal Rep:JASMYNE Martinez ind: CHANDAN CELIS ID:[id number] 20-DEC-2016 07:18:02 [facility] Atrial fibrillation Abnormal ECG When compared with ECG of 04-NOV-2016 06:56, Vent. rate has decreased BY 45 BPM Confirmed by Tommie Palafox ([id number]) on 12/20/2016 10:37:29 AM 25mm/s 10mm/mV 150Hz 8.0 SP2 12SL 241 TOMY: 13 Referred by: Referred Self Confirmed By: Tommie Palafox Vent. rate 77 BPM DC interval * ms QRS duration 88 ms QT/QTc 390/441 ms P-R-T axes * 34 2 1935 (81 yr) Female 59in 1lb Room: Loc:15 Business Proposal Rep:Pepper Martinez ind: Impression Assessment and Plan Patient is a 81 y/o female, with PMHx of paroxysmal a.fib, HTN, hypercholesterolemia, and anxiety/depression, who presented to the ED because of complaints of back pain and palpitations. A.fib w/ RVR: - Admitted to tele for cardiac monitoring - Follow EKG QAM and PRN for chest pain - Cardiac enzymes negative x1 - Treated w/ IV Cardizem 30 mg, then IV Lopressor 5 mg x1 and Digoxin 250 mcg x1 - still RVR at admission- give another dose of IV Digoxin at 1500 - Continue Metoprolol 25 mg BID and ASA 81 mg daily - IV Lopressor 5 mg q4 hrs PRN HR >120 - Patient has refused anticoagulation - TSH- WNL - Cardiology consulted, appreciate recommendations Anxiety: IV Ativan 0.5-1 mg q4 hrs PRN and PO 0.5 mg q6 hrs PRN s/p repair of a coarctation and PDA -- 1953: CTA unremarkable for acute findings Recent dental procedure: Clindamycin 150 mg QID- started on 12/20 HTN- STABLE: Continue Metoprolol as above DVT prophylaxis: TEDs/SCDs Code Status: LEVEL I, FULL Dispo: From home- no discharge needs anticipated PA Physician Supervision Note: I interviewed and examined the patient. Discussed with Oliva RODRIGUEZ and agree with findings and plan as documented in the note. Any exceptions or clarifications are listed here: None Patient presented with palpitations was found to be in recurrent paroxysmal A. fib however did not break she feels that upon recent dental work and possible inflammation or infection. In the past she's been refractory to want to take long-term oral anticoagulant in addition she has had a cardioversion with resumption of A. fib afterwards Her vital signs show her blood pressure to be stable after initially was low after diltiazem bolus her heart rate was varying between 101 30 and an irregularly irregular rhythm Recurrent paroxysmal atrial fibrillation We'll observe in telemetry unit given additional digoxin dosing this evening for 12.5 on 12/19 continuing her metoprolol with when necessary IV use in hopes that with some rest and some slowing of her rate she'll convert back to sinus rhythm will not formally anticoagulate her at this time due to her previous refusal of long-term at the coagulation and will use clindamycin for dental complaints Documented By: Froilan Coburn Level of Care Telemetry Advanced Directives Existing Living Will: No Existing Power of Permaculture Contractor: No Resuscitation Status FULL RESUSCITATION VTE Prophylaxis VTE Risk Assessment Done? Y/N: Yes Risk Level: Moderate Given or contraindicated: Malia Carbajalings, SCD's
[2016-12-20] MEDS ORDERED: IV FLUIDS COMPLETED PRN (14:00)
[2016-12-20] MEDS ORDERED: DIGOXIN IV 250 MCG in SYRINGE 9 ML IV ONE (15:00)
[2016-12-20 16:24] VITALS: BP 92/67; PULSE 98; TEMP 36.3; O2SAT 98
[2016-12-20] MEDS: CLINDAMYCIN HCL 150 MG CAP PO SCH ×2 (17:19→20:52)
[2016-12-20] MEDS: ALUMINUM/MAGNESIUM/SIMETH (MAALOX MAX) 30 ML UDC PO PRN (18:04)
[2016-12-20 19:42] VITALS: BP 104/59; PULSE 78; TEMP 36.4; O2SAT 97
[2016-12-20] MEDS: METOPROLOL SUCC 25MG EXT REL TAB PO SCH (20:50)
[2016-12-20] MEDS: LORAZEPAM 0.5 MG TAB PO PRN (20:50)
[2016-12-20 23:41] VITALS: BP 110/71; PULSE 83; TEMP 36.9; O2SAT 94
[2016-12-21] VITALS (15 sets, daily range): BP systolic 87–128; BP diastolic 53–84; PULSE 74–120; TEMP 36.3–37; O2SAT 95–98
[2016-12-21] MEDS: LORAZEPAM 0.5 MG TAB PO PRN ×2 (03:53→10:00)
[2016-12-21 06:17] LABS: HEMATOCRIT 34.8 % (37-47); MEAN CELL VOLUME 92.3 fL (80-100); MEAN CORPUSCULAR HEMOGLOBIN 30.8 pg (25-34); MEAN CORPUSCULAR HGB CONC 33.3 g/dl (32-36); PLATELET COUNT 202 K/uL (130-400); RED BLOOD COUNT 3.77 M/uL (4.2-5.4); WHITE BLOOD COUNT 5.51 K/uL (4.8-10.8)
[2016-12-21 06:56] LABS: BUN/CREATININE RATIO 20.2 (10-20); CALCIUM 8.1 mg/dl (8.5-10.1); CREATININE 0.5 mg/dl (0.60-1.20); MAGNESIUM 2.2 mg/dl (1.8-2.4); POTASSIUM 3.9 mmol/L (3.5-5.1)
[2016-12-21] MEDS: METOPROLOL SUCC 25MG EXT REL TAB PO SCH (07:51)
[2016-12-21] MEDS: CLINDAMYCIN HCL 150 MG CAP PO SCH ×4 (07:51→20:32)
[2016-12-21] MEDS: TOCOPHERYL, DL-ALPHA 400 INTER.UNIT CAP PO SCH (07:52)
[2016-12-21] MEDS: ASCORBIC ACID 500 MG TAB PO SCH (07:52)
[2016-12-21] MEDS: ASPIRIN 81 MG ECTAB PO SCH (07:52)
[2016-12-21] MEDS: ALUMINUM/MAGNESIUM/SIMETH (MAALOX MAX) 30 ML UDC PO PRN (08:23)
[2016-12-21] MEDS ORDERED: HEPARIN IV BOLUS 4,000 UNIT in SYRINGE 0 ML IV ONE (10:15)
[2016-12-21] MEDS ORDERED: METOPROLOL SUCC 25MG EXT REL TAB PO ONE (10:15)
[2016-12-21 10:25] LABS: BASO % 0.5 %; BASO ABS # 0.03 K/uL (0-0.2); EOS % 1.6 %; HEMATOCRIT 35.5 % (37-47); IG% 0.3 %; LYMPH % 29.6 %; LYMPH ABS # 1.83 K/uL (1.2-3.4); MEAN CELL VOLUME 92.9 fL (80-100); MEAN CORPUSCULAR HEMOGLOBIN 31.2 pg (25-34); MEAN PLATELET VOLUME 10.6 fL (7.4-10.4); MONO % 10.8 %; NEUT % 57.2 %; PLATELET COUNT 215 K/uL (130-400); RED BLOOD COUNT 3.82 M/uL (4.2-5.4); WHITE BLOOD COUNT 6.18 K/uL (4.8-10.8)
[2016-12-21 10:34] LABS: PROTHROMBIN TIME (PATIENT) 11.1 SECONDS (9.0-12.0)
[2016-12-21] MEDS: HEPARIN 25000 UNIT/ D5W 500 ML (PHARMACY PREPARED) IV PRN ×4 (10:42→21:32)
[2016-12-21 10:44] LABS: COMPLETE YES; MEAN CORPUSCULAR HGB CONC 33.5 g/dl (32-36)
--- NOTE | 2016-12-21 12:08 | Progress Note ---
Subjective Date of Service: Dec 21, 2016. Subjective Today patient feels better her heart rate is around 100 she's had IV heparin instituted by Dr. troncoso in cardiology he is contemplating chemical cardioversion. The patient herself is unsure what to do and is requesting to speak with Dr. Barajas every shot to him and he'll be overt speak the patient otherwise she has no complete or problems does not feel any more palpitation chest pain or shortness of breath Problem List Medical Problems: (1) Acute chest wall pain Status: Acute (2) Anxiety Status: Acute (3) Atrial fibrillation with rapid ventricular response Status: Acute (4) Chest discomfort Status: Acute (5) Fatigue Status: Acute (6) Hypokalemia Status: Acute (7) Intermittent palpitations Status: Acute (8) Shortness of breath Status: Acute (9) Thoracic back pain Status: Acute Review of Systems ROS: well nourished well developed No double vision blurry vision No problems with speech or swallowing No palpitations, chest pain or pressure No Wheezing or breathing issues No abdominal pain nausea vomiting diarrhea changes in appetite or weight No burning urine urine frequency or changes in color No focal joint pain or muscle pain No skin rashes or oral lesions No unusual bruising or bleeding No focused back pain or numbness or loss of strength No changes in memory or confusion Objective Vital Signs Date Time Temp Pulse Resp B/P (MAP) Pulse Ox O2 Delivery O2 Flow Rate FiO2 12/21/16 08:00 97 Room Air 12/21/16 07:51 36.3 79 18 99/61 (74) 97 Room Air 12/21/16 04:01 36.3 87 20 105/60 (75) 96 Room Air 12/21/16 04:00 Room Air 12/20/16 23:59 Room Air 12/20/16 23:41 36.9 83 18 110/71 (84) 94 Room Air 12/20/16 20:00 Room Air 12/20/16 19:42 36.4 78 18 104/59 (74) 97 Room Air 12/20/16 16:24 36.3 98 16 92/67 (75) 98 12/20/16 15:02 72 12/20/16 13:42 123 20 117/85 95 12/20/16 13:35 123 20 117/85 95 Room Air 12/20/16 13:01 114 12/20/16 12:50 36.7 69 21 93/80 Room Air Physical Exam General Appearance: WD/WN, no apparent distress Eyes: PERRL, EOMI Respiratory/Chest: chest non-tender, lungs clear, normal breath sounds Cardiovascular: + tachycardia, + irregularly irregular Abdomen: normal bowel sounds, non tender, soft Extremities: no pedal edema, no calf tenderness Neurologic/Psychiatric: alert, oriented x 3 Laboratory Results Last 24 Hours Test 12/21/16 05:46 12/21/16 10:06 White Blood Count 5.51 K/uL 6.18 K/uL Red Blood Count 3.77 M/uL 3.82 M/uL Hemoglobin 11.6 g/dL 11.9 g/dL Hematocrit 34.8 % 35.5 % Mean Corpuscular Volume 92.3 fL 92.9 fL Mean Corpuscular Hemoglobin 30.8 pg 31.2 pg Mean Corpuscular Hemoglobin Concent 33.3 g/dl 33.5 g/dl RDW Standard Deviation 43.7 fL 44.7 fL RDW Coefficient of Variation 13.0 % 13.2 % Platelet Count 202 K/uL 215 K/uL Mean Platelet Volume 11.0 fL 10.6 fL Sodium Level 140 mmol/L Potassium Level 3.9 mmol/L Chloride Level 109 mmol/L Carbon Dioxide Level 24 mmol/L Anion Gap 7.0 mmol/L Blood Urea Nitrogen 10 mg/dl Creatinine 0.50 mg/dl Est Creatinine Clear Calc Drug Dose 72.9 ml/min Estimated GFR () 105.2 Estimated GFR (Non- 90.8 BUN/Creatinine Ratio 20.2 Random Glucose 86 mg/dl Calcium Level 8.1 mg/dl Magnesium Level 2.2 mg/dl Neutrophils (%) (Auto) 57.2 % Lymphocytes (%) (Auto) 29.6 % Monocytes (%) (Auto) 10.8 % Eosinophils (%) (Auto) 1.6 % Basophils (%) (Auto) 0.5 % Neutrophils # (Auto) 3.53 K/uL Lymphocytes # (Auto) 1.83 K/uL Monocytes # (Auto) 0.67 K/uL Eosinophils # (Auto) 0.10 K/uL Basophils # (Auto) 0.03 K/uL Immature Granulocyte % (Auto) 0.3 % Immature Granulocyte # (Auto) 0.02 K/uL Prothrombin Time 11.1 SECONDS Prothromb Time International Ratio 1.0 Activated Partial Thromboplast Time 25.4 SECONDS Partial Thromboplastin Ratio 1.0 Assessment and Plan 81 y/o female, w with recurrent A. fib RVR and ith PMHx of paroxysmal a.fib, HTN , hypercholesterolemia, and anxiety/depression, A.fib w/ RVR: Continue Metoprolol 50 mg BID and ASA 81 mg daily - IV Lopressor 5 mg q4 hrs PRN HR >120 - Patient has refused anticoagulation in the past cardiology has started intravenous heparin with consideration of chemical cardioversion - TSH- WNL Anxiety: Has been better controlled with Ativan s/p repair of a coarctation and PDA -- 1953: CTA unremarkable for acute findings showing chronic stenosis and other chronic changes Recent dental procedure: Reports improved subjective complaints Clindamycin 150 mg QID- started on 12/20 HTN- STABLE: Continue Metoprolol as above DVT prophylaxis: TEDs/SCDs Code Status: LEVEL I, FULL
--- NOTE | 2016-12-21 12:41 | CARDIOLOGY CONSULTATION ---
DATE OF CONSULTATION: 12/21/2016 PRIMARY PHYSICIAN: Queta Martinez DO PRIMARY TRANSPORTATION DIRECTOR: Abdiel Barajas MD CONSULTATION: Esa Nye MD ATTENDING AND REFERRING PHYSICIAN: Froilan Coburn MD HISTORY OF PRESENT ILLNESS: The patient is an 81-year-old white female with a history of paroxysmal atrial fibrillation. She has a longstanding history of heart disease. In 195, she underwent cardiothoracic surgery for repair of an aortic coarctation and patent ductus arteriosus. This was performed at the [facility] in [place] by Dr. Jason Urrutia. This was in the initial era of CT surgery. She also has a history of aortic valvular disease. Her most recent echocardiogram performed in August of 2015 reveals normal LV ejection fraction of 65%-70%, moderate concentric LVH, mild aortic stenosis, [id number] aortic regurgitation, and mild mitral regurgitation. She has had episodes of paroxysmal atrial fibrillation in October of 2014, August of 2015, 11/04/2016, and this current admission. The episode of atrial fibrillation in October 2014 had conversion of atrial fibrillation to sinus rhythm while she was receiving intravenous amiodarone. The episode in 2015 spontaneously converted. The episode in October 2016 had spontaneous conversion to sinus rhythm. The November 04 episode was felt to be related to hypokalemia (2.9) and stress from a dental procedure. The patient had a dental procedure on one of her upper teeth. She states that the procedure does not have the desired results. Since then, she has had pain. The procedure was performed by a dentist covering for her normal dentist. Her normal dentist Dr. Jules feels that she has to redo the procedure. However, it cannot be redone for at least 2 weeks as he feels that she has inflammation at this site. She was treated with clindamycin 150 mg q. 6 hours p.o. on the November 04 admission. This antibiotic course was completed. The patient states that she has done well from a cardiac standpoint from October until the early hours of December 20. She developed palpitations and vague sensation in her chest. She also complained to the Emergency Department physician on arrival to [facility] that she had back discomfort. Because of her history of aortic surgery, she underwent a CT scan of her chest with contrast. 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 No significant change compared to a prior CT scan. It was reported that she had mild component of congestive heart failure. Generalized atherosclerotic changes and ectasia of the thoracic aorta. The patient was admitted to the telemetry unit. This was yesterday afternoon. Cardiology consultation was ordered at 12:42 p.m. The [facility] Cardiology office was not contacted regarding this consultation. There is a record in the paving contractor service log from late last evening of the consulting phone done from the telemetry unit. I was made aware of this patient this morning. The nursing staff does report that this morning she had ventricular rates in the 40s-50s. This was transient. The rates have since increased back into the 80s to low 100s. The patient has previously refused anticoagulation therapy. Because of this, she was not placed on intravenous heparin. In the past, she has been treated with both Pradaxa and Eliquis. She had adverse reactions to both medications. She refuses chronic anticoagulation therapy. The patient was seen by me this morning in her telemetry unit room. She states that she has been under increased mental stress because of her dental problems. She does have a baseline history of anxiety, for which she takes benzodiazepines. This is in the form of lorazepam. She states that since admission to telemetry unit, she has had no further palpitations. No back or chest discomfort. She denies any lightheadedness or syncope. No orthopnea or PND. On arrival to the Emergency Department, she had complained of diffuse weakness. No complaints of weakness today. She denies any cerebrovascular complaints suggestive of a thromboembolic event. No other symptoms suggestive of a thromboembolic event. No bleeding complaints. She has mild discomfort in her upper mouth. No fevers or chills. PAST MEDICAL HISTORY: 1. 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 2. Aortic valvular disease as documented above. Mild aortic stenosis and mild to moderate aortic regurgitation. 3. Paroxysmal atrial fibrillation. 4. Type 2 diabetes mellitus. 5. Dyslipidemia. 6. Hypertension. 7. History of depression and anxiety. 8. History of gallbladder disease. 9. Status post appendectomy, vein stripping, and tubal ligation. FAMILY HISTORY: No family history of coronary artery disease or arrhythmia. Family history of breast cancer, colon cancer, ovarian cancer, and leukemia. SOCIAL HISTORY: The patient is a . She does not smoke cigarettes or drink alcohol. Four children. ALLERGIES AND ADVERSE DRUG REACTIONS: ELIQUIS, CYCLOBENZAPRINE, EPINEPHRINE, FLU VIRUS VACCINE, PENICILLINS, AND PRADAXA. CURRENT MEDICATIONS: Aspirin 81 mg daily, vitamin E 400 units daily, vitamin C 500 mg daily, metoprolol succinate ER 25 mg p.o. b.i.d., clindamycin 150 mg q.i.d., and several p.r.n. medications. She had received intravenous diltiazem on December 20. She also received a dose of intravenous digoxin 250 mcg IV on the afternoon of December 20. REVIEW OF SYSTEMS: 1. As above. 2. Other than the dental pain, no other HEENT complaints. 3. No pulmonary or urinary complaints. 4. No peripheral vascular or cerebrovascular complaints. 5. Anxiety. PHYSICAL EXAMINATION: GENERAL: The patient is sitting up in her bed. No distress. VITAL SIGNS: Ventricular rate at time of my exam by monitor was in the 80s to low 100s. Blood pressure last evening 110/71. This morning 99/61. Pulse oximetry on room air 97%. Ventricular rate on this admission has been as high as 135. This is the time of arrival to the Emergency Department. GENERAL APPEARANCE: Shows her to be in no distress. HEAD: Normal. EYES: Pupils equal and round. Anicteric. Conjunctivae normal. No xanthelasma. NECK: No jugular venous distension. Carotids are 2/2 bilaterally. Normal upstroke. No bruits. LUNGS: Normal respiratory effort. Clear. No rales or wheezes. HEART: Irregularly irregular. No S3. 2/6 systolic murmur at the second right intercostal space and left sternal border. No diastolic murmur or rub. ABDOMEN: Soft. Nontender. No palpable masses or organomegaly. No bruits. EXTREMITIES: No pretibial edema. No cyanosis or clubbing. NEUROLOGIC: Alert and oriented x3. Motor grossly intact. PSYCHIATRIC: Affect is normal. PULSES: Distal pulses are strongly palpable in all extremities. DATA: CT scan of chest with results as reported above. There is no evidence of aortic dissection. Aortic abnormalities as noted. Chest x-ray on admission reviewed by me with increased pulmonary vasculature. Electrocardiogram in December 20 at 06:45 a.m. with atrial fibrillation with rapid ventricular response of 134 beats per minute. Inferolateral ST depressions consistent with ischemia. No significant change compared to electrocardiogram on 11/04/2016. Electrocardiogram performed this morning with atrial fibrillation with ventricular rate of 77 beats per minute, inferolateral ST and T wave abnormalities suggestive of ischemia. The ST abnormalities improved from admission electrocardiogram. LABORATORY DATA: Today with WBC 6.18, hemoglobin 11.9, hematocrit 35.5, and platelet count 215. INR 1.0. PTT 25.4. Point of care troponin I on December 20 was less than 0.030. Metabolic profile today with sodium 140, potassium 3.9, chloride 109, carbon dioxide 24, BUN 10, creatinine 0.5, random glucose 86 and magnesium 2.2. TSH is 1.760. AST and ALT are normal. Calcium today 8.1. Serum albumin 3.6 yesterday. ASSESSMENT: 1. Longstanding history of paroxysmal atrial fibrillation. Development of atrial fibrillation with rapid ventricular response approximately 30 hours ago. Ventricular rate to atrial fibrillation has been controlled since admission. She did receive doses of intravenous diltiazem as well as digoxin. Current ventricular rate controlled and mildly elevated. Transient bradycardia this morning. This has since resolved. 2. No signs or symptoms of congestive heart failure. Suggestion of pulmonary vascular congestion on both CT scan of her chest and chest x-ray. Her lung exam today is normal. Normal oxygen saturation on room air. 3. History of mild aortic stenosis and mild to moderate aortic regurgitation. As stated above, no current signs or symptoms of congestive heart failure. 4. History of labile hypertension. Blood pressure adequately controlled this admission. 5. The patient has previously refused long-term oral anticoagulation therapy. This was again discussed with her today by me. She continues to decline and refuse alf oral anticoagulation therapy. After extensive discussion with her today, she does agree to be placed on intravenous heparin at this time. 6. No signs or symptoms suggestive of a thromboembolic event. 7. She does have an elevated [id number] score of 5. This is a high risk category. Yearly risk of stroke is estimated at 6.7%. Antithrombotic recommendation is oral anticoagulation. The patient is aware of this. She declines and refuses manager intermediate oral anticoagulation therapy. 8. Electrocardiogram with ST abnormalities suggestive of ischemia. With the elevated ventricular rate on admission and her moderate left ventricular hypertrophy, could represent demand ischemia. Cardiac enzymes negative for myocardial injury. No anginal chest discomfort. She did have complaints of back discomfort on arrival to the Emergency Department. This may have been an anginal equivalent type symptom. RECOMMENDATIONS AND PLAN: 1. After a lengthy discussion, the patient is agreeable to starting intravenous heparin at this time. We will start her with a bolus and then maintenance infusion. 2. Additional 25 mg of metoprolol succinate ER now. 3. Anxiolytic therapy with flurazepam. Dose given this morning. 4. We will reevaluate the patient in the afternoon. The therapeutic options of pharmacologic cardioversion and electrical cardioversion were extensively discussed with her. She will consider these options. Based on her history, it is likely that a pharmacologic cardioversion would be successful. 5. Clear liquid diet at this time in the event that attempts at cardioversion to be attempted later this afternoon. Certainly if she undergoes electrical cardioversion, she will need to be n.p.o. 6. The patient states that the clindamycin causes her to have GI discomfort. She insisted that Dr. Martinez had prescribed a different antibiotic at the time of her hospital followup visit in November. I contacted Dr. Martinez's office. No record of her Dr. Martinez prescribing any antibiotics. I checked with the patient's pharmacy and they have no record of any new prescriptions for an antibiotic. They do have a prescription for amoxicillin suspension to take prior to dental procedures. Greater than 45 minutes was spent by me with the patient today. Over 50% of time was spent in discussion regarding her atrial fibrillation, reduction of thromboembolic risk with anticoagulation therapy, ventricular rate control of atrial fibrillation, and therapeutic alternatives for cardioversion. Thank you for asking us to see this patient in cardiology consultation. [place]
[2016-12-21] MEDS ORDERED: IBUTILIDE FUMARATE 0.1 MG/ML 10 ML VIAL IV ONE (13:15)
--- NOTE | 2016-12-21 14:40 | PROGRESS NOTE ---
DATE: 12/21/2016 PROCEDURE: Pharmacologic cardioversion. CLINICAL INDICATIONS: Atrial fibrillation. PROTOCOL: The patient was attached to a monitor in her room. With direct monitoring of her rhythm she was then given by me 0.52 mg of intravenous ibutilide over 10 minutes. Her weight is less than 60 kg. The commended dose of ibutilide with her weight is 0.01 mg/kg. She weighs 52 kg. During the infusion of the ibutilide she had no ventricular arrhythmias. She persisted with atrial fibrillation. She was observed for an additional 10 minutes and remained in atrial fibrillation. She was then given an additional 0.48 mg of intravenous ibutilide over 10 minutes. Despite this second dose of ibutilide she remained in atrial fibrillation. She remained without any ventricular arrhythmias. She was asymptomatic during the ibutilide infusion. CONCLUSION: Unsuccessful attempted pharmacologic cardioversion of atrial fibrillation with ibutilide. PLAN: The patient will be placed back on intravenous heparin. She will be monitored for an additional 4 hours. If she remains in atrial fibrillation at that time she will be started on intravenous amiodarone. The patient steadfastly refuses oral anticoagulation therapy. While hospitalized, she will remain on intravenous anticoagulation with heparin.
[2016-12-21 17:11] LABS: PARTIAL THROMBOPLASTIN RATIO 5.9
[2016-12-21] MEDS: LORAZEPAM 2 MG/ML 1 ML VIAL IV PRN ×2 (17:22→17:24)
[2016-12-21] MEDS ORDERED: AMIODARONE / D5W 100 ML IV SCH (18:00)
[2016-12-21] MEDS ORDERED: AMIODARONE / D5W 200 ML IV SCH (18:10)
[2016-12-21 19:52] LABS: PARTIAL THROMBOPLASTIN RATIO 1.3
[2016-12-21] MEDS ORDERED: SODIUM CHLORIDE 0.9% 500ML 500 ML IV ONE (20:00)
[2016-12-21] MEDS ORDERED: AMIODARONE IV BOLUS / DRIP IV SCH (20:00)
[2016-12-21] MEDS ORDERED: METOPROLOL SUCC 50MG EXT REL TAB PO SCH (21:00)
[2016-12-21] MEDS ORDERED: METOPROLOL SUCC 25MG EXT REL TAB PO SCH (23:00)
[2016-12-22] MEDS ORDERED: AMIODARONE / D5W 200 ML IV SCH (00:11)
[2016-12-22 00:25] VITALS: BP 116/67; PULSE 89; TEMP 36.8; O2SAT 97
[2016-12-22 04:18] VITALS: BP 94/57; PULSE 65; TEMP 36.6; O2SAT 99
[2016-12-22 07:31] VITALS: BP 134/83; PULSE 60; TEMP 36.4; O2SAT 99
[2016-12-22 07:54] LABS: HEMATOCRIT 36.3 % (37-47); MEAN CELL VOLUME 91.9 fL (80-100); MEAN CORPUSCULAR HEMOGLOBIN 31.4 pg (25-34); MEAN CORPUSCULAR HGB CONC 34.2 g/dl (32-36); MEAN PLATELET VOLUME 11.2 fL (7.4-10.4); PLATELET COUNT 213 K/uL (130-400); RED BLOOD COUNT 3.95 M/uL (4.2-5.4); WHITE BLOOD COUNT 6.31 K/uL (4.8-10.8)
[2016-12-22] MEDS: CLINDAMYCIN HCL 150 MG CAP PO SCH ×2 (08:02→12:50)
[2016-12-22] MEDS: TOCOPHERYL, DL-ALPHA 400 INTER.UNIT CAP PO SCH (08:02)
[2016-12-22] MEDS: ASPIRIN 81 MG ECTAB PO SCH (08:02)
[2016-12-22 08:11] LABS: PARTIAL THROMBOPLASTIN RATIO 1.7
[2016-12-22 08:23] LABS: BUN/CREATININE RATIO 15.3 (10-20); CALCIUM 8.4 mg/dl (8.5-10.1); CREATININE 0.59 mg/dl (0.60-1.20); POTASSIUM 3.9 mmol/L (3.5-5.1)
[2016-12-22] MEDS ORDERED: METOPROLOL SUCC 50MG EXT REL TAB PO SCH (09:00)
[2016-12-22] MEDS: ASCORBIC ACID 500 MG TAB PO SCH (09:03)
[2016-12-22] MEDS ORDERED: HEPARIN IV BOLUS 2,000 UNIT in SYRINGE 0 ML IV ONE (09:15)
[2016-12-22] MEDS: HEPARIN 25000 UNIT/ D5W 500 ML (PHARMACY PREPARED) IV PRN ×2 (09:19)
[2016-12-22 12:00] VITALS: BP 103/58; PULSE 59; TEMP 36.7; O2SAT 99
--- NOTE | 2016-12-22 12:04 | PROGRESS NOTE ---
DATE: 12/22/2016 SUBJECTIVE: The patient was seen by me this morning in the telemetry unit room. She states that she is feeling well from a physical standpoint. She did have difficulty sleeping overnight. This is a common complaint of hers when she is hospitalized. No orthopnea or PND. No chest pain or other pains. No palpitations, lightheadedness, syncope, or peripheral edema. No abdominal discomfort. No GI complaints. No pulmonary or urinary complaints. No leg pain. No leg swelling. No symptoms suggestive of a thromboembolic event. MEDICATIONS: This morning were metoprolol succinate ER 50 mg b.i.d., intravenous amiodarone 0.5 mg per minute, intravenous heparin by weight based protocol, aspirin 81 mg daily, vitamin E 400 units daily, vitamin C 500 mg daily, clindamycin 150 mg q.i.d., and several p.r.n. medications. ALLERGIES AND ADVERSE DRUG REACTIONS: ELIQUIS, PRADAXA, CYCLOBENZAPRINE, EPINEPHRINE, FLU VIRUS VACCINE, PENICILLINS. Monitor history reviewed by me. She reconverted to sinus rhythm this morning. Since then she has maintained sinus rhythm. PHYSICAL EXAMINATION: GENERAL APPEARANCE: Shows her to be awake and alert. No distress. VITAL SIGNS: This morning with oral temperature 36.4, pulse 60, blood pressure 134/83, pulse oximetry room air 99%. NECK: No jugular venous distention. LUNGS: Normal respiratory effort. Clear. No rales or wheezes. HEART: Regular rate and rhythm. Diminished aortic valvular closing sound. A 2/6 systolic murmur second right intercostal space and left sternal border. No diastolic murmur or rub. ABDOMEN: Soft. Nontender. No palpable masses or organomegaly. No bruits. EXTREMITIES: No pretibial edema. No calf tenderness. NEUROLOGIC: Alert and oriented x3. Motor grossly intact. PSYCHIATRIC: Affect is normal. DATA: Electrocardiogram this morning and reviewed by me with sinus rhythm. First degree AV block with SC interval 252 milliseconds. Corrected QT interval normal at [address] abnormalities. LABORATORY DATA: This morning with WBC 6.31, hemoglobin 12.4, hematocrit 36.3, platelet count 213. Metabolic profile with potassium 3.9, BUN 9, creatinine 0.59, random glucose 96. PTT this morning 45.4. ASSESSMENT: 1. Paroxysmal atrial fibrillation. Conversion to sinus rhythm overnight. She was started on intravenous amiodarone last evening. Failed attempt at pharmacologic cardioversion yesterday with intravenous ibutilide. 2. No current cardiac symptoms. 3. Aortic stenosis and aortic regurgitation. No signs or symptoms of heart failure, angina, lightheadedness, or syncope. 4. History of hypertension. Blood pressure under good control today. 5. First degree atrioventricular block. This is on a combination of both amiodarone and metoprolol. Also, she had received a dose of digoxin 2 days ago. 6. No signs or symptoms of heart failure. 7. No signs or symptoms suggestive of thromboembolic event. 8. No bleeding complaints on antithrombotic therapy with aspirin and heparin. RECOMMENDATIONS: 1. Discontinue intravenous heparin and intravenous amiodarone. 2. Continue higher dose of metoprolol succinate ER 50 mg b.i.d. At the time of admission, she was on 25 b.i.d. 3. Discharge patient home. 4. Cardiology followup with Dr. Barajas in 1 week. 5. The patient refuses oral anticoagulation therapy. This has been extensively discussed with her by me and Dr. Barajas on multiple occasions. Extensive discussion yesterday. She continues to refuse oral anticoagulation therapy. 6. The patient was advised to return to the hospital if she has any symptoms suggestive of reoccurrence of atrial fibrillation. If she has a reoccurrence of atrial fibrillation in the near future, would then consider maintenance oral amiodarone.
[2016-12-22] MEDS ORDERED: ASPI81TA28 PO (13:31)
[2016-12-22] MEDS ORDERED: METO-452 PO (13:31)
--- NOTE | 2016-12-22 13:36 | Discharge Instructions ---
Discharge Instructions Date of Service Dec 22, 2016. Admission Reason for Admission: AFIB Discharge Discharge Diagnosis / Problem: atrial fibrillation - resolved Discharge Goals Goal(s): Learn about illness, Diagnostic testing, Therapeutic intervention Activity Recommendations Activity Limitations: resume your previous activity . Instructions / Follow-Up Instructions / Follow-Up 1. During your stay you were treated for atrial fibrillation. You were seen by cardiology and started on amiodarone infusion and heparin infusion. You converted back to normal sinus rhythm at 5am on 12/22/16. The amiodarone and heparin infusions at that time were discontinued. 2. Dr. Nye has recommended taking toprol xl (metoprolol xl) 50mg twice a day. Please note the increased dose. A new prescription has been provided for you. 3. Dr. Nye and Dr. Coburn spoke to you about your high risk of stroke from the atrial fibrillation. Anticoagulation ("blood thinners") were recommended. At this time you have elected to not start a blood thinner. Please speak with Dr. Barajas about this issue. 4. Please continue your aspirin 81mg twice a day. 5. See Dr. Barajas in 1 week. 6. Call your dentist on Saturday to schedule a follow-up for THIS WEEK. Ok to stay off antibiotics at this time. 7. Return to [facility] if - * you experience fluttering of the heart, palpitations, rapid heart rate, etc * you develop shortness of breath or chest pain * any other concerns Current Hospital Diet Patient's current hospital diet: AHA Diet (Heart Healthy) Discharge Diet Recommended Diet: AHA Diet (Heart Healthy) Procedures Procedures Performed: CAT scan of the lungs - NO evidence of dissection of the aorta OR large aortic aneurysm. evidence of prior thoracic surgery. Pending Studies Studies pending at discharge: no Medical Emergencies . Who to Call and When: Medical Emergencies: If at any time you feel your situation is an emergency, please call 911 immediately. . Non-Emergent Contact Non-Emergency issues call your: Doctor Of Nurse Anesthesia Call Non-Emergent contact if: you have any medication questions . . "Provider Documentation" section prepared by Padilla Hollis. . VTE Core Measure Inpt VTE Proph given/why not?: Other Anticoagulation, T.E.D. Stockings, SCD's
[2016-12-22 13:46] VITALS: BP 103/58; PULSE 59; TEMP 36.7; O2SAT 99
== END 2016-12-22 14:39 | disposition home health service (06) | DRG 310 ==
LOC: EDBD 06:42 → C.EDA 06:44 → C.2T 12:47 → ENRESERV 13:32 → OBSVTOIN 20:04
PROVIDERS: ADMIT Internal Medicine; ATTEND Internal Medicine
DX: I48.0 Paroxysmal atrial fibrillation (principal); I35.0 Nonrheumatic aortic (valve) stenosis; I44.0 Atrioventricular block, first degree; E78.5 Hyperlipidemia, unspecified; I10 Essential (primary) hypertension; F41.9 Anxiety disorder, unspecified; E11.9 Type 2 diabetes mellitus without complications; Z79.82 Long term (current) use of aspirin; Z79.899 Other long term (current) drug therapy; Z88.0 Allergy status to penicillin

== ENCOUNTER 2017-01-07 22:57 | Emergency (ER) | payer BC, OTHER ==
[~2017-01-07] VITALS: Ht 162.6 cm; Wt 52.0 kg
[~2017-01-07 22:57] MED LIST changes: -CLC150 PO; +METO-452 PO; -TPRSR/25 PO
[2017-01-07 22:59] VITALS: TEMP 36.7; Ht 162.6 cm; Wt 52.0 kg
[2017-01-07] MEDS ORDERED: KETOROLAC TROMETHAMINE 30 MG/ML VIAL IV STA (23:35)
[2017-01-07 23:59] LABS: BASO % 0.3 %; BASO ABS # 0.02 K/uL (0-0.2); COMPLETE YES; EOS % 0.7 %; HEMATOCRIT 36.5 % (37-47); IG% 0.4 %; LYMPH % 22.4 %; MEAN CELL VOLUME 90.6 fL (80-100); MEAN CORPUSCULAR HGB CONC 34.2 g/dl (32-36); MEAN PLATELET VOLUME 10.6 fL (7.4-10.4); MONO % 8.2 %; PLATELET COUNT 228 K/uL (130-400); RED BLOOD COUNT 4.03 M/uL (4.2-5.4); WHITE BLOOD COUNT 7.58 K/uL (4.8-10.8)
--- NOTE | 2017-01-08 | EMERGENCY ROOM VISIT NOTE ---
History Report prepared by Dariela: Ino Sher Under the Supervision of: Dr. Ba Vail M.D. First contact with patient: 23:27 Chief Complaint: SHOULDER PAIN Stated Complaint: SHOULDER PAIN/HIP PAIN History of Present Illness The patient is a 81 year old female who presents to the Emergency Room with complaints of on and off bilateral shoulder pain for the past four days. The patient states that she had some shoulder pain and then saw a chiropractor and had a manipulation done. She states that afterwards she feels like her shoulders are in spasm off and on. The patient notes that she has an incision on her back from a cardiac surgery, and the pain is over the incision which worries her. She reports that she cannot take a full deep breath or yawn because of the pain, and she feels short of breath. The patient denies any nausea, vomiting, fevers, and chills. She states that today she had a fruit smoothie, and afterwards she had some diarrhea. The patient takes two baby aspiring daily, and she used to take Eliquis for A-fib but decided with her doctor that baby ASA daily would be sufficient. Source of History: patient Onset: four days ago Position: shoulder (bilateral) Quality: other (spasm) Timing: other (on and off) Associated Symptoms: + SOB, + diarrhea, No fevers, No chills, No nausea, No vomiting Review of Systems See HPI for pertinent positives and negatives. A total of ten systems were reviewed and were otherwise negative. Past Medical & Surgical Medical Problems: (1) Afib (2) Aortic Valve Disorder (3) History of repair of coarctation of aorta (4) Hyperlipidemia Nec/Nos (5) Hypertension Nos (6) Patent ductus arteriosus (7) Tubal Ligation Status Family History FHx: cancer FHx: heart disease Social History Smoking Status: Former Smoker Alcohol Use: none Drug Use: none Marital Status: Housing Status: lives alone Occupation Status: retired Current/Historical Medications Scheduled Ascorbic Acid (Vitamin C), 500 MG PO DAILY Aspirin (Aspirin Ec), 81 MG PO BID Calcium W/ Magnesium (Calcium Magnesium 750), 1 TAB PO DAILY Metoprolol Succinate (Toprol Xl), 1 TAB PO BID Vitamin E (E-400), 400 UNITS PO DAILY [Tumeric], Unknown Dose PO DAILY Scheduled PRN Lidocaine (Lidoderm Patch 5%), 1 PATCH TD DAILY PRN for Pain Trolamine Salicylate (Aspercreme), 1 APPLN TOP DIRECTED PRN for Pain Allergies Coded Allergies: Epinephrine (Verified Allergy, Severe, TACHYCARDIA, 12/20/16) Apixaban (Verified Allergy, Unknown, WEAKNESS/DIFFICULTY BREATHING, ) Honey (Verified Allergy, Unknown, ANAPHYLAXIS, 12/20/16) wild flower honey Penicillins (Verified Allergy, Unknown, UNKNOWN, 12/20/16) Flu Virus Vaccine (Verified Adverse Reaction, Intermediate, "ARTHRITIS SYMPTOMS", 12/20/16) Cyclobenzaprine (Verified Adverse Reaction, Unknown, lethargy, 12/20/16) Physical Exam Vital Signs Date Time Temp Pulse Resp B/P (MAP) Pulse Ox O2 Delivery O2 Flow Rate FiO2 01/08/17 01:30 79 18 168/84 98 01/08/17 01:09 79 18 168/84 98 Room Air 01/08/17 00:01 74 01/07/17 23:59 77 18 147/89 98 Room Air 01/07/17 23:58 Room Air 01/07/17 22:59 36.7 82 18 179/93 98 Room Air Physical Exam GENERAL: Awake, alert, well-appearing, in no distress HENT: Normocephalic, atraumatic. Oropharynx unremarkable. EYES: Normal conjunctiva. Sclera non-icteric. NECK: Supple. No nuchal rigidity. FROM. No JVD. RESPIRATORY: Clear to auscultation. CARDIAC: 3/6 systolic murmur. Regular rate, normal rhythm. Extremities warm and well perfused. Pulses equal. ABDOMEN: Soft, non-distended. No tenderness to palpation. No rebound or guarding. No masses. RECTAL: Deferred. MUSCULOSKELETAL: Left posterior lateral chest wall scar from childhood surgery. Mild tenderness to thoracic paraspinal muscles medially to the scapula bilaterally. Chest examination reveals no tenderness. The back is symmetrical on inspection without obvious abnormality. There is no CVA tenderness to palpation. No joint edema. LOWER EXTREMITIES: Calves are equal size bilaterally and non-tender. No edema. No discoloration. NEURO: Normal sensorium. No sensory or motor deficits noted. SKIN: No rash or jaundice noted. Medical Decision & Procedures ER Provider Diagnostic Interpretation: X-ray: Per my interpretation: Chest One View: Normal mediastinum. No gross consolidations. No gross rib fractures. Laboratory Results 01/07/17 23:50 Red Blood Count 4.03, Mean Corpuscular Volume 90.6, Mean Corpuscular Hemoglobin 31.0, Mean Corpuscular Hemoglobin Concent 34.2, Mean Platelet Volume 10.6, Neutrophils (%) (Auto) 68.0, Lymphocytes (%) (Auto) 22.4, Monocytes (%) (Auto) 8.2, Eosinophils (%) (Auto) 0.7, Basophils (%) (Auto) 0.3, Neutrophils # (Auto) 5.16, Lymphocytes # (Auto) 1.70, Monocytes # (Auto) 0.62, Eosinophils # (Auto) 0.05, Basophils # (Auto) 0.02 01/07/17 23:50 Test 01/07/17 23:50 White Blood Count 7.58 K/uL (4.8-10.8) Red Blood Count 4.03 M/uL (4.2-5.4) Hemoglobin 12.5 g/dL (12.0-16.0) Hematocrit 36.5 % (37-47) Mean Corpuscular Volume 90.6 fL (80-100) Mean Corpuscular Hemoglobin 31.0 pg (25-34) Mean Corpuscular Hemoglobin Concent 34.2 g/dl (32-36) Platelet Count 228 K/uL (130-400) Mean Platelet Volume 10.6 fL (7.4-10.4) Neutrophils (%) (Auto) 68.0 % Lymphocytes (%) (Auto) 22.4 % Monocytes (%) (Auto) 8.2 % Eosinophils (%) (Auto) 0.7 % Basophils (%) (Auto) 0.3 % Neutrophils # (Auto) 5.16 K/uL (1.4-6.5) Lymphocytes # (Auto) 1.70 K/uL (1.2-3.4) Monocytes # (Auto) 0.62 K/uL (0.11-0.59) Eosinophils # (Auto) 0.05 K/uL (0-0.5) Basophils # (Auto) 0.02 K/uL (0-0.2) RDW Standard Deviation 42.3 fL (36.4-46.3) RDW Coefficient of Variation 12.7 % (11.5-14.5) Immature Granulocyte % (Auto) 0.4 % Immature Granulocyte # (Auto) 0.03 K/uL (0.00-0.02) Anion Gap 10.0 mmol/L (3-11) Est Creatinine Clear Calc Drug Dose 73.9 ml/min Estimated GFR () 105.9 Estimated GFR (Non- 91.4 BUN/Creatinine Ratio 17.2 (10-20) Calcium Level 8.8 mg/dl (8.5-10.1) Total Bilirubin 0.6 mg/dl (0.2-1) Direct Bilirubin 0.2 mg/dl (0-0.2) Aspartate Amino Transf (AST/SGOT) 15 U/L (15-37) Alanine Aminotransferase (ALT/SGPT) 17 U/L (12-78) Alkaline Phosphatase 50 U/L (45-117) Troponin I < 0.015 ng/ml (0-0.045) Pro-B-Type Natriuretic Peptide 420 pg/ml (0-1800) Total Protein 6.8 gm/dl (6.4-8.2) Albumin 3.8 gm/dl (3.4-5.0) Lipase 89 U/L (73-393) Laboratory results reviewed by me Medications Administered Medications (Trade) Dose Ordered Sig/Stefanie Route Start Time Stop Time Status Last Admin Dose Admin Ketorolac Tromethamine (Toradol Inj) 15 mg NOW STAT IV 01/07/17 23:35 01/07/17 23:36 DC 01/07/17 23:53 15 MG Lidocaine (Lidoderm Patch 5%) 1 patch STK-MED ONCE .ROUTE 01/08/17 01:31 01/08/17 01:32 DC 01/08/17 01:32 1 PATCH ECG Indication: back/shoulder pain Rate (beats per minute): 74 Rhythm: normal sinus Findings: 1st degree AV block, no acute ischemic change, other (normal axis) ED Course 2327: The patient was evaluated in room B10. A complete history and physical exam was performed. 0119: I reevaluated the patient. Discussed results and discharge instructions: She verbalized understanding and agreement. The patient is ready for discharge. Medical Decision I reviewed the patient's past medical history, medications, and the nursing notes as described above. Differential diagnoses include: musculoskeletal strain, ACS, thoracic aneurysm, dissection, pneumonia, bronchitis. The patient is a 81-year-old woman with a remote history of a childhood surgery for repair of coarctation of the aorta presents to the emergency department with bilateral scapular pain after having manipulation by her chiropractor per history of present illness. Arrival the patient is well-appearing, afebrile with stable vital signs. Patient has mild tenderness on palpation to bilateral thoracic paraspinal muscles medial to the scapula. No crepitus. Labs are unremarkable including WBC within normal limits. Troponin negative in the setting of 4 days of symptoms. EKG and Chest x-ray unremarkable. The patient has reproducible tenderness in the paraspinal muscles; Muscular strain likely explains the patient's symptoms. Moreover negative workup in the setting of 4 days of symptoms makes cardiac etiology less likely. Findings and plan for follow-up reviewed with patient. Patient agreeable and d/c'd per discharge instructions. Medication Reconcilliation Current Medication List: was personally reviewed by me Blood Pressure Screening Patient's blood pressure: Elevated blood pressure Blood pressure disposition: Referred to PCP Impression Primary Impression: Shortness of breath Additional Impression: Back pain Scribe Attestation The scribe's documentation has been prepared under my direction and personally reviewed by me in its entirety. I confirm that the note above accurately reflects all work, treatment, procedures, and medical decision making performed by me. Departure Information Dispostion Home / Self-Care Prescriptions Lidocaine (Lidoderm Patch 5%) 1 Ea Tdsy 1 PATCH TD DAILY Y for Pain, #10 PATCH 12 hours on and 12 hours off to painful area. Prov: Ba Vail M.D. 01/08/17 Referrals Queta Martinez D.O. (PCP) Forms HOME CARE DOCUMENTATION FORM, IMPORTANT VISIT INFORMATION Patient Instructions Back Pain Relieve, ED Dyspnea Shortness of Breath, ED Muscle Aching, My [facility] Additional Instructions Please follow up with your primary care physician in the next 1-3 days for re- evaluation. You likely have a muscle strain. Otherwise, your exam, EKG, chest xray, and lab results did not show signs of an emergent condition at this time. Acetaminophen or Ibuprofen for pain as needed. Lidoderm patches for additional pain relief. Return to the emergency department for worsening symptoms as described in the accompanying instructions. Problem Qualifiers
[2017-01-08 00:20] LABS: ALT/SGPT 17 U/L (12-78); BLOOD UREA NITROGEN 8 mg/dl (7-18); BUN/CREATININE RATIO 17.2 (10-20); CALCIUM 8.8 mg/dl (8.5-10.1); CARBON DIOXIDE 23 mmol/L (21-32); CHLORIDE 102 mmol/L (98-107); CREATININE 0.49 mg/dl (0.60-1.20); GLUCOSE 89 mg/dl (70-99); POTASSIUM 3.5 mmol/L (3.5-5.1); SODIUM 135 mmol/L (136-145)
[2017-01-08 00:25] LABS: ALKALINE PHOSPHATASE 50 U/L (45-117); AST/SGOT 15 U/L (15-37)
[2017-01-08] MEDS ORDERED: NF656 TD (01:26)
[2017-01-08 01:30] VITALS: BP 168/84; PULSE 79; O2SAT 98
[2017-01-08] MEDS ORDERED: LIDODERM (LIDOCAINE) PATCH 5% ONE (01:31)
--- NOTE | 2017-01-08 07:20 | DIAGNOSTIC IMAGING REPORT ---
SINGLE VIEW CHEST CLINICAL HISTORY: Atypical chest pain. FINDINGS: An AP, portable, upright chest radiograph is compared to study dated 12/20/2016 and correlated with chest CT dated 09/05/2015. The examination is degraded by portable technique and patient rotation. The heart is enlarged and there is atherosclerotic calcification of the thoracic aorta. The pulmonary vasculature is noncongested. Chronic interstitial thickening is unchanged. There is chronic elevation of the left hemidiaphragm and bibasilar atelectasis. No airspace consolidation or pleural effusion is identified. No pneumothorax is seen. The skeletal structures are osteopenic. The bony thorax is grossly intact. IMPRESSION: Cardiomegaly with no acute cardiopulmonary abnormality. Electronically signed by: Александр Rudd M.D. 01/08/2017 7:18 AM Dictated Date/Time: 01/08/2017 7:17 AM
[2017-01-08] MEDS ORDERED: LIDODERM (LIDOCAINE) PATCH 5% TD SCH (09:00)
== END 2017-01-08 01:59 | disposition home or self-care (01) ==
LOC: EDBD 22:57 → C.EDB 22:58
DX: R06.02 Shortness of breath (principal); M54.6 Pain in thoracic spine; I48.91 Unspecified atrial fibrillation; E78.5 Hyperlipidemia, unspecified; I10 Essential (primary) hypertension; Z79.82 Long term (current) use of aspirin; Z82.49 Family history of ischemic heart disease and other diseases of the circulatory system; Z98.890 Other specified postprocedural states

== ENCOUNTER 2017-01-21 01:27 | Emergency (ER) | payer BC ==
[~2017-01-21 01:27] MED LIST changes: +NF656 TD
[2017-01-21 01:32] VITALS: Ht 162.6 cm
[2017-01-21] MEDS ORDERED: ATV5X PO (02:10)
[2017-01-21] MEDS ORDERED: TPRSR/25 PO (02:11)
[2017-01-21] MEDS ORDERED: DIAZEPAM 5MG TAB PO STA ×2 (02:21→03:23)
--- NOTE | 2017-01-21 02:33 | EMERGENCY ROOM VISIT NOTE ---
History Report prepared by Dariela: Ino Sher Under the Supervision of: Dr. Yash Sandoval M.D. First contact with patient: 01:47 Chief Complaint: BACK PAIN Stated Complaint: PRESSURE IN BACK/CHEST,HAVEING TROUBLE BREATHING History of Present Illness The patient is an 81 year old female who presents to the Emergency Room with complaints of worsening lower back pain for the past 3 days. The patient states that the pain is radiating upward to the shoulders, and she has been having muscle spasms. She additionally states that she has been having some shortness of breath since she feels like she is unable to take a full breath. She notes that the pain is in the location of her previous fractures. The patient reports that she took a half of an Ativan around 2000 tonight. She states that she recently tried to exercise today. The patient denies any chest pain, fever, vomiting, urinary symptoms, diarrhea, and falls, and any leg swelling. Source of History: patient Onset: three days ago Position: back Quality: other (spasm) Timing: worsening Associated Symptoms: + SOB, No fevers, No chest pain, No diarrhea, No urinary symptoms Review of Systems See HPI for pertinent positives & negatives. A total of 10 systems reviewed and were otherwise negative. Past Medical & Surgical Medical Problems: (1) Afib (2) Aortic Valve Disorder (3) History of repair of coarctation of aorta (4) Hyperlipidemia Nec/Nos (5) Hypertension Nos (6) Patent ductus arteriosus (7) Tubal Ligation Status Family History FHx: cancer FHx: heart disease Social History Smoking Status: Never Smoker Alcohol Use: none Drug Use: none Marital Status: Housing Status: lives alone Occupation Status: retired Current/Historical Medications Scheduled Ascorbic Acid (Vitamin C), 500 MG PO DAILY Aspirin (Aspirin Ec), 81 MG PO BID Calcium W/ Magnesium (Calcium Magnesium 750), 1 TAB PO DAILY Metoprolol Succinate (Metoprolol Succinate ER), 25 MG PO BID Vitamin E (E-400), 400 UNITS PO DAILY [Tumeric], Unknown Dose PO DAILY Scheduled PRN Diazepam (Valium), 2.5 MG PO Q6H PRN for Pain Lidocaine (Lidoderm Patch 5%), 1 PATCH TD DAILY PRN for Pain Lorazepam (Lorazepam), 0.25 MG PO QID PRN for Muscle Spasms Trolamine Salicylate (Aspercreme), 1 APPLN TOP DIRECTED PRN for Pain Allergies Coded Allergies: Epinephrine (Verified Allergy, Severe, TACHYCARDIA, 01/21/17) Apixaban (Verified Allergy, Unknown, WEAKNESS/DIFFICULTY BREATHING, ) Honey (Verified Allergy, Unknown, ANAPHYLAXIS, 01/21/17) wild flower honey Penicillins (Verified Allergy, Unknown, UNKNOWN, 01/21/17) Flu Virus Vaccine (Verified Adverse Reaction, Intermediate, "ARTHRITIS SYMPTOMS", 01/21/17) Cyclobenzaprine (Verified Adverse Reaction, Unknown, lethargy, 01/21/17) Physical Exam Vital Signs Date Time Temp Pulse Resp B/P (MAP) Pulse Ox O2 Delivery O2 Flow Rate FiO2 01/21/17 03:55 63 14 168/82 99 01/21/17 03:55 63 14 168/82 99 01/21/17 03:09 63 14 134/69 01/21/17 02:27 65 23 194/93 99 01/21/17 02:02 64 01/21/17 01:58 67 22 167/84 01/21/17 01:32 80 20 173/79 100 Room Air Physical Exam GENERAL: Patient is anxious but well appearing and in no acute distress. HEENT: No acute trauma, normocephalic atraumatic, mucous membranes moist, no nasal congestion, no scleral icterus. NECK: No stridor, no adenopathy, no meningismus, trachea is midline. LUNGS: No dyspnea. Clear to auscultation and equal bilaterally. No wheeze, no rhonchi. HEART: Regular rate and rhythm. No murmurs, rubs, gallops appreciated. ABDOMEN: Soft, nontender, bowel sounds positive, no masses appreciated, no peritonitis. BACK: Right lumbar paraspinal tenderness to palpation and spasm. EXTREMITIES: Normal motion all extremities, no cyanosis, no edema. NEUROLOGIC: Alert and oriented, no acute motor or sensory deficits, no focal weakness, cranial nerves grossly intact. SKIN: No rash, no jaundice, no diaphoresis. Medical Decision & Procedures ER Provider Diagnostic Interpretation: X ray results are stated below per my interpretation: 3 View Lumbar Spine: No fracture. No dislocation 2 View Chest: Chronic lung disease. Diffuse arthritic changes. No infiltrate. No effusions. No thoracic fractures. Medications Administered Medications (Trade) Dose Ordered Sig/Stefanie Route Start Time Stop Time Status Last Admin Dose Admin Diazepam (Valium Tab) 2.5 mg NOW STAT PO 01/21/17 02:21 01/21/17 02:22 DC 01/21/17 02:30 2.5 MG Diazepam (Valium Tab) 5 mg NOW STAT PO 01/21/17 03:23 01/21/17 03:24 DC 01/21/17 03:51 5 MG ED Course 0147: The patient was evaluated in room A10. A complete history and physical exam was performed. 0316: I reevaluated the patient, and she had complete resolution of her pain and would like to go home. Case management is going to get in touch with her to follow up with her PCP. The patient will be discharged home. Medical Decision Differential: Musculoskeletal, Disc Herniation, Fracture, Cord Compression, Discitis, Infectious, Aortic Pathology, Renal Colic, UTI/Pyelonephritis, Acute Exacerbation of Chronic Pain, Sciatica, Cauda Equina, amongst other pathologies entertained. Anxious 81 yr old female known well to me from previous visits. Admits increased exertion yesterday and now spasm of lower back. Seems this has caused he to feel SOB as symptoms resolved immediately with small dose Valium. She looks well and is in no distress. Imaging OK. No leg weakness nor loss bowel/bladder. Not consistent with renal nor aortic path and she denies UTI symptoms. She admits this has occurred previously on regular basis and Ativan not as effective for it. Advised follow up with PCP and Casemanagement will touch base with patient as well. Medication Reconcilliation Current Medication List: was personally reviewed by me Blood Pressure Screening Patient's blood pressure: Elevated blood pressure Blood pressure disposition: Elevated BP felt to be situational, Referred to PCP Impression Primary Impression: Strain of lumbar region Scribe Attestation The scribe's documentation has been prepared under my direction and personally reviewed by me in its entirety. I confirm that the note above accurately reflects all work, treatment, procedures, and medical decision making performed by me. Departure Information Dispostion Home / Self-Care Prescriptions Diazepam (Valium) 5 Mg Tab 2.5 MG PO Q6H Y for Pain, #10 TAB Prov: Yash Sandoval M.D. 01/21/17 Referrals Grine, Queta M.,D.O. (PCP) Forms HOME CARE DOCUMENTATION FORM, IMPORTANT VISIT INFORMATION Patient Instructions ED Spasm Back No Trauma, My [facility] Additional Instructions Follow up with Dr Martinez. You have received a benzodiazepine pain medication prescription. These medications may cause drowsiness and should not be used with other sedative medications. Do not drive, drink alcohol, perform dangerous activities, nor make important decisions after taking these medications. termite exterminator helper use or inappropriate use may lead to addiction.
[2017-01-21] MEDS ORDERED: DIAZ-165 PO (03:24)
[2017-01-21] MEDS ORDERED: EMPTY 8 DRAM VIAL ONE (03:35)
[2017-01-21 03:55] VITALS: BP 168/82; PULSE 63; O2SAT 99
--- NOTE | 2017-01-21 06:33 | DIAGNOSTIC IMAGING REPORT ---
CHEST 2 VIEWS ROUTINE CLINICAL HISTORY: back spasms causing shortness of breath dyspnea COMPARISON STUDY: 01/07/2017 FINDINGS: Mild stable cardiomegaly. Lungs are clear. Diaphragms smooth. IMPRESSION: Mild stable cardiomegaly. Lungs remain clear. The above report was generated using voice recognition software. It may contain grammatical, syntax or spelling errors. Electronically signed by: Arsh Leonard M.D. 01/21/2017 6:32 AM Dictated Date/Time: 01/21/2017 6:31 AM
--- NOTE | 2017-01-21 06:56 | DIAGNOSTIC IMAGING REPORT ---
LUMBAR SPINE 2 OR 3 VIEWS CLINICAL HISTORY: 81 years-old Female presenting with lumbar back pain. TECHNIQUE: Frontal, lateral, and coned in lateral views of the lumbar spine were obtained. COMPARISON: 09/11/2010. FINDINGS: No significant scoliosis. Normal lumbar lordosis. Vertebral bodies maintain normal height and alignment. Osteopenia suggested. Intervertebral disc spaces preserved. No advanced degenerative change. No radiographic evidence of a compression deformity or subluxation. Degenerative changes of the sacroiliac joints. Marked stool burden in the right colon, sigmoid colon, and rectum. Atherosclerosis. IMPRESSION: 1. Osteopenia suggested. 2. No advanced degenerative changes in the lumbar spine. 3. Findings suggestive of constipation. Electronically signed by: Sid Torres M.D. 01/21/2017 6:54 AM Dictated Date/Time: 01/21/2017 6:52 AM
== END 2017-01-21 03:55 | disposition home or self-care (01) ==
LOC: C.EDB 01:28 → C.EDA 03:55
DX: S39.012A Strain of muscle, fascia and tendon of lower back, initial encounter (principal); X58.XXXA Exposure to other specified factors, initial encounter; I10 Essential (primary) hypertension; Z82.49 Family history of ischemic heart disease and other diseases of the circulatory system; Z79.82 Long term (current) use of aspirin

== ENCOUNTER → 2017-09-11 | Outpatient (CLI) | payer BC ==
[~2017-09-11] MED LIST changes: +ATV5X PO; +DIAZ-165 PO; -METO-452 PO; -NF656 TD; +TPRSR/25 PO; -TROL10LO TOP; -TUMERIC PO
[2017-09-11 13:16] LABS: BLOOD UREA NITROGEN 17 mg/dl (7-18); CALCIUM 8.9 mg/dl (8.5-10.1); CARBON DIOXIDE 27 mmol/L (21-32); CREATININE 0.59 mg/dl (0.60-1.20); GLUCOSE 92 mg/dl (70-99); POTASSIUM 4.3 mmol/L (3.5-5.1); SODIUM 136 mmol/L (136-145)
== END | disposition home or self-care (01) ==
LOC: C.LABBC 10:40
PROVIDERS: ATTEND Internal Medicine Cardiovascular Disease
DX: I48.0 Paroxysmal atrial fibrillation (principal); E87.6 Hypokalemia

== ENCOUNTER 2018-02-25 02:49 | Inpatient (IN) ==
[2018-02-25 03:17] LABS: Basophils # (auto) 0.02 K/uL (0-0.2); Basophils % (auto) 0.3 %; Eosinophils # (auto) 0.11 K/uL (0-0.5); Eosinophils % (auto) 1.6 %; Hematocrit (blood only) 35.2 % (37-47); Hemoglobin 11.9 g/dL (12.0-16.0); Immature Granulocytes # (auto) 0.02 K/uL (0.00-0.02); Immature Granulocytes % (auto) 0.3 %; Lymphocytes # (auto) 1.45 K/uL (1.2-3.4); Lymphocytes % (auto) 20.9 %; Mean Corpuscular Hgb Conc 33.8 g/dL (32-36); Mean Corpuscular Volume 94.4 fL (80-100); Mean Platelet Volume 10.3 fL (7.4-10.4); Monocytes # (auto) 0.74 K/uL (0.11-0.59); Monocytes % (auto) 10.7 %; Neutrophils % (auto) 66.2 %; Platelet Count 251 K/uL (130-400); RDW Coefficient of Variation 13.1 % (11.5-14.5); RDW Standard Deviation 45.4 fL (36.4-46.3); Red Blood Count 3.73 M/uL (4.2-5.4); White Blood Count 6.94 K/uL (4.8-10.8)
[2018-02-25 03:26] LABS: Alanine Aminotransferase 16 U/L (12-78); Albumin Level 3.4 gm/dl (3.4-5.0); Aspartate Aminotransferase 12 U/L (15-37); BUN Creatinine Ratio 23.8 (10-20); Blood Urea Nitrogen 12 mg/dl (7-18); Calcium 8.5 mg/dl (8.5-10.1); Carbon Dioxide 25 mmol/L (21-32); Chloride 103 mmol/L (98-107); Creatinine Clr Calc Pharmacy 71.2 ml/min; Est GFR (African American) 104.5; Est GFR (Non-African American) 90.1; Glucose 111 mg/dl (70-99); Magnesium 2.1 mg/dl (1.8-2.4); Potassium 3.9 mmol/L (3.5-5.1); Sodium 134 mmol/L (136-145)
[2018-02-25 03:37] LABS: Alkaline Phosphatase 48 U/L (45-117); Bilirubin,Total 0.3 mg/dl (0.2-1); Globulin 3.3 gm/dl (2.5-4.0); Total Protein 6.7 gm/dl (6.4-8.2); Troponin I < 0.015 ng/ml (0-0.045)
[2018-02-25 03:38] LABS: INR 1.1 (0.9-1.1); Partial Thromboplastin Ratio 1.1; Partial Thromboplastin Time 29.6 Seconds (21.0-31.0); Prothrombin Time 11.3 Seconds (9.0-12.0)
[2018-02-25] MEDS ORDERED: dilTIAZem HCl 5 MG/ML 5 ML VIAL IV STA ×2 (03:40→05:34)
[2018-02-25 04:52] LABS: NT Pro B Type Natriuretic Pept 537 pg/ml (0-1800)
[2018-02-25] MEDS ORDERED: LORazepam 0.5 MG/1 ML VIAL IV STA (05:00)
[2018-02-25] MEDS ORDERED: SODIUM CHLORIDE 0.9% 500 ML IV ONE (05:33)
--- NOTE | 2018-02-25 06:35 | History & Physical Report ---
Date of Service February 25, 2018 Assessment & Plan (1) Atrial fibrillation with RVR: Patient presenlty remains in RVR although better controlled, was 112 - 130 bpm. Blood pressure is mildly low at 94/63. Patient is asymptomatic and appropriate. Thus far she has taken Metoprolol 100mg PO around 23:00 and Diltiazem 10mg IV x 1 dose as well as a Xarelto at home * Admit to telemetry * Resume home medications - Metoprolol 50mg po BID * Diltiazem 120 mg po q AM * Xarelto 20mg po daily * Cardiology consult - patient is known to Dr. Barajas * Continue to monitor * (2) Anxiety: Patient states she feels well now. * Continue Ativan PRN * Monitor F/E/N- NSS at 80mL/hr x 500mL, monitor electrolytes and replete as needed, regular diet as tolerated Ppx - Patient anticoagulated with Xarelto Code - Partial code - patient does not wish to receive chest compressions or intubation but agrees with cardioversion should she need it History of Present Illness Chief Complaint: Atrial fibrillation Primary Care Provider: Queta Martinez DO Mrs. Sanchez is an 82yo C female with history of PAF, repair of coarctation of the aorta in 1954 an anxiety presenting with AF with RVR. Patient states that this evening around 23:00 she felt chills then noticed palpitations and rapid heart rate. She called Dr. Ye Barajas and was instructed to take metoprolol 100mg PO and a Xarelto. She took these medications and decided to come to the ER because she remained in AF. Of note, patient does not take her Diltiazem or Xarelto daily. She has had infrequent episodes of atrial fibrillation. Presently states she feels very tired, otherwise no complaints. She denies CP, SOB, dizziness, nausea, vomiting, diarrhea or constipation. No additional complaints at this time ER Course: Diltiazem 10mg IV, Ativan 0.5mg IV, NSS x 500mL Allergies Allergy/AdvReac Type Severity Reaction Status Date / Time epinephrine Allergy Severe TACHYCARDIA Verified 02/25/18 03:50 apixaban Allergy Unknown WEAKNESS/DIFFICULTY Verified 02/25/18 03:50 BREATHING honey Allergy Unknown ANAPHYLAXIS Verified 02/25/18 03:50 Penicillins Allergy Unknown UNKNOWN Verified 02/25/18 03:50 cyclobenzaprine AdvReac Unknown lethargy Verified 02/25/18 03:50 Flu Virus Vaccine AdvReac Intermediate "ARTHRITIS Uncoded 02/25/18 03:50 SYMPTOMS" Home Medications Home Medications Medication Instructions Recorded Confirmed Type Ca carb-Ca gluc-Mg ox-Mg gluco 1 tab PO DAILY 01/13/18 02/25/18 History [Calcium Magnesium] ascorbic acid (vitamin C) 500 mg PO DAILY 01/13/18 02/25/18 History lorazepam 0.5 mg PO DAILY PRN 01/13/18 02/25/18 History vitamin E 400 unit PO DAILY 01/13/18 02/25/18 History diltiazem HCl 120 mg PO QAM #30 cap 01/14/18 02/25/18 Rx metoprolol succinate 50 mg PO BID #60 ea 01/14/18 02/25/18 Rx rivaroxaban [Xarelto] 20 mg PO DAILY #30 tab 01/14/18 02/25/18 Rx Past Med/Surg History Medical History Aortic regurgitation DVT prophylaxis Atrial fibrillation with rapid ventricular response (Acute) Patent ductus arteriosus (Resolved 06/20/11) History of repair of coarctation of aorta (Resolved 06/20/11) Afib (Inactive) Urinary tract infection (Inactive) Anxiety Aortic stenosis Chronic back pain Surgical History H/O cataract extraction History of tubal ligation Social History marital status: marital status details: has 4 children Current Living Situation: Alone current occupational status: retired other: had PhD in Art; worked at [employer] Feels Safe at Home: Yes Smoking Status: Never smoker Hx Alcohol Use: Yes Alcohol type: wine Alcohol Intake Frequency: a few times a week Hx Substance Use: No Beliefs That Will Affect Care: None Preferred Language: Swedish Review of Systems All systems reviewed & are unremarkable except as noted in HPI & below Physical Exam 2 Vital Signs (Past 24 Hours): Last Vital Signs Temp 36.4 C L 02/25/18 02:55 Pulse 127 H 02/25/18 05:46 Resp 16 02/25/18 05:46 BP 94/63 L 02/25/18 05:46 Pulse Ox 97 02/25/18 05:46 Physical Exam: General: patient resting comfortably, NAD, non-toxic in appearance, AA&O x 4 Skin: warm, dry, intact, no rashes or lesions HEENT: NC/AT, PERRL, EOMI, anicteric sclera, conjunctiva without injection, external ear normal to inspection and nontender, nares patent, moist mucus membranes, dentition intact, no oropharyngeal lesions, neck supple, trachea midline, no LAD, no thyromegaly, no JVD Heart: +S1/S2, irregularly irregular, 2/6 GUERRERO across precordium Lungs: equal air entry bilaterally, no rales/rhonchi/wheezes Abd: +BS, soft, NT/ND, no masses/organomegaly/ascites Ext: warm, 2+ pulses in UE/LE bilaterally, no clubbing/cyanosis or edema Neuro: nonfocal, patient AA&O x 4, speech intact, no facial droop, moving all extremities on command with equal strength 5/5 Results & Data Laboratory Results Lab Results 02/25/18 02/25/18 02/25/18 Range/Units 03:00 03:00 03:00 WBC 6.94 (4.8-10.8) K/uL RBC 3.73 L (4.2-5.4) M/uL Hgb 11.9 L (12.0-16.0) g/dL Hct 35.2 L (37-47) % MCV 94.4 (80-100) fL MCH 31.9 (25-34) pg MCHC 33.8 (32-36) g/dL RDW Std Deviation 45.4 (36.4-46.3) fL RDW Coeff of [place] 13.1 (11.5-14.5) % Plt Count 251 (130-400) K/uL MPV 10.3 (7.4-10.4) fL Immature Gran % (Auto) 0.3 % Neut % (Auto) 66.2 % Lymph % (Auto) 20.9 % [place] % (Auto) 10.7 % Eos % (Auto) 1.6 % Baso % (Auto) 0.3 % Immature Gran # (Auto) 0.02 (0.00-0.02) K/uL Neut # (Auto) 4.60 (1.4-6.5) K/uL Lymph # (Auto) 1.45 (1.2-3.4) K/uL [place] # (Auto) 0.74 H (0.11-0.59) K/uL Eos # (Auto) 0.11 (0-0.5) K/uL Baso # (Auto) 0.02 (0-0.2) K/uL PT 11.3 (9.0-12.0) Seconds INR 1.1 (0.9-1.1) APTT 29.6 (21.0-31.0) Seconds PTT Ratio 1.1 Sodium 134 L (136-145) mmol/L Potassium 3.9 (3.5-5.1) mmol/L Chloride 103 (98-107) mmol/L Carbon Dioxide 25 (21-32) mmol/L Anion Gap 6.0 (3-11) BUN 12 (7-18) mg/dl Creatinine 0.50 L (0.6-1.2) mg/dl Est Cr Clr Drug Dosing 71.2 ml/min Est GFR ( Amer) 104.5 Est GFR (Non-Af Amer) 90.1 BUN/Creatinine Ratio 23.8 H (10-20) Glucose 111 H (70-99) mg/dl Calcium 8.5 (8.5-10.1) mg/dl Magnesium 2.1 (1.8-2.4) mg/dl Total Bilirubin 0.3 (0.2-1) mg/dl AST 12 L (15-37) U/L ALT 16 (12-78) U/L Alkaline Phosphatase 48 (45-117) U/L Troponin I < 0.015 (0-0.045) ng/ml NT-Pro-B Natriuret Pep 537 (0-1800) pg/ml Total Protein 6.7 (6.4-8.2) gm/dl Albumin 3.4 (3.4-5.0) gm/dl Globulin 3.3 (2.5-4.0) gm/dl Albumin/Globulin Ratio 1.0 (0.9-2) TSH 1.420 (0.300-4.500) uIu/ml Diagnostic Findings No acute process identified. Similar to prior study ECG Additional Comments: Atrial fibrillation with RVR at 136bpm, normal axis, WQRS= 70, VEr=892, nonspecific T-wave changes Code Status & VTE Plan Code Status partial code - ONLY WANTS CARDIOVERSION; NO CHEST COMPRESSIONS, NO INTUBATION VTE Prophylaxis Plan VTE Prophylaxis will be ordered: No Critical Care Time Critical Care Time: No
[2018-02-25] MEDS ORDERED: METOPROLOL TARTRATE 1 MG/ML VIAL IV PRN (07:46)
[2018-02-25] MEDS ORDERED: LORazepam 0.5 MG TAB PO PRN (07:46)
--- NOTE | 2018-02-25 07:48 | Emergency Department Note ---
Entered by Tacho Pickett acting as a scribe for Birgit Callahan DO History of Present Illness General Chief complaint: Cardiac Assessment Time Seen by Provider: 02/25/18 03:00 Source: patient History of Present Illness Onset (ago): day(s) (last night) Location: chest Pain Consistency: + other (an episode) Quality: + other (Afib) Associated symptoms: + other (Positive for nausea, vomiting, and feeling cold. Negative for SOB. ) The patient is an 82 year old female who presents to the emergency department with complaints of an episode of Afib occurring last night. The patient states that she has a history of Afib and woke up this evening with an episode of Afib. She reports that she took metoprolol and Xarelto and has been nauseous and vomiting since. She also complains of feeling cold. She denies any SOB. The patient states that she had no symptoms during the day and she notes that she has been eating and drinking normally. Home Medications Home Medications Medication Instructions Recorded Confirmed Type Ca carb-Ca gluc-Mg ox-Mg gluco 1 tab PO DAILY 01/13/18 02/25/18 History [Calcium Magnesium] ascorbic acid (vitamin C) 500 mg PO DAILY 01/13/18 02/25/18 History lorazepam 0.5 mg PO DAILY PRN 01/13/18 02/25/18 History vitamin E 400 unit PO DAILY 01/13/18 02/25/18 History diltiazem HCl 120 mg PO QAM #30 cap 01/14/18 02/25/18 Rx metoprolol succinate 50 mg PO BID #60 ea 01/14/18 02/25/18 Rx rivaroxaban [Xarelto] 20 mg PO DAILY #30 tab 01/14/18 02/25/18 Rx Allergies Allergy/AdvReac Type Severity Reaction Status Date / Time epinephrine Allergy Severe TACHYCARDIA Verified 02/25/18 03:50 apixaban Allergy Unknown WEAKNESS/DIFFICULTY Verified 02/25/18 03:50 BREATHING honey Allergy Unknown ANAPHYLAXIS Verified 02/25/18 03:50 Penicillins Allergy Unknown UNKNOWN Verified 02/25/18 03:50 cyclobenzaprine AdvReac Unknown lethargy Verified 02/25/18 03:50 Flu Virus Vaccine AdvReac Intermediate "ARTHRITIS Uncoded 02/25/18 03:50 SYMPTOMS" Past Med/Surg History Medical History Aortic regurgitation DVT prophylaxis Atrial fibrillation with rapid ventricular response (Acute) Patent ductus arteriosus (Resolved 06/20/11) History of repair of coarctation of aorta (Resolved 06/20/11) Afib (Inactive) Urinary tract infection (Inactive) Anxiety Aortic stenosis Chronic back pain Surgical History H/O cataract extraction History of tubal ligation Social History marital status: marital status details: has 4 children Current Living Situation: Alone current occupational status: retired Other Information That Helps Us Care for You: No other: had PhD in Art; worked at [employer] Feels Safe at Home: Yes Safety Concerns: Feels Safe At This Time Smoking Status: Never smoker Do You Dip or Chew Tobacco: No Second Hand Exposure: No Tobacco Cessation Education Requested by Patient: No Hx Alcohol Use: Yes Alcohol type: wine Alcohol Intake Frequency: a few times a week Hx Substance Use: No Beliefs That Will Affect Care: None Preferred Language: Bhutanese Communication Ability: Effective 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 and A total of 10 systems reviewed and were otherwise negative Physical Exam Vital Signs Vital Signs - 24 hr 02/25/18 02:55 02/25/18 03:13 02/25/18 03:45 Temperature 36.4 C L Temperature Source Oral Sepsis Recent Fever Within 48 Hours No Sepsis New/Unexplained Change in Mental Status No Sepsis Action Taken by Nursing No Action Required Pulse Rate 128 H Pulse Rate [Apical] 128 H 126 H Pulse Rhythm Irregular Pulse Rhythm [Apical] Irregular Irregular Pulse Strength Normal Pulse Strength [Apical] Normal Normal Respiratory Rate 16 20 Respiratory Effort / Characteristics Non-Labored Spontaneous Non-Labored Spontaneous Respiratory Depth Normal Normal Respiratory Pattern Regular Regular Blood Pressure 152/89 H Blood Pressure [Right Arm] 152/89 H 121/85 Blood Pressure Mean 110 Blood Pressure Mean [Right Arm] 110 97 Blood Pressure Position Lying Blood Pressure Position [Right Arm] Pulse Oximetry 100 99 98 Oxygen Delivery Method Room Air Room Air Room Air 02/25/18 03:51 02/25/18 04:07 02/25/18 04:34 Temperature Temperature Source Sepsis Recent Fever Within 48 Hours Sepsis New/Unexplained Change in Mental Status Sepsis Action Taken by Nursing Pulse Rate Pulse Rate [Apical] 81 87 106 H Pulse Rhythm Pulse Rhythm [Apical] Irregular Regular Irregular Pulse Strength Pulse Strength [Apical] Normal Respiratory Rate 24 20 18 Respiratory Effort / Characteristics Non-Labored Spontaneous Non-Labored Spontaneous Non-Labored Spontaneous Respiratory Depth Normal Normal Normal Respiratory Pattern Regular Regular Blood Pressure Blood Pressure [Right Arm] 91/37 L 111/72 Blood Pressure Mean Blood Pressure Mean [Right Arm] 55 85 Blood Pressure Position Blood Pressure Position [Right Arm] Pulse Oximetry 94 97 97 Oxygen Delivery Method Room Air Room Air Room Air 02/25/18 04:59 02/25/18 05:13 02/25/18 05:35 Temperature Temperature Source Sepsis Recent Fever Within 48 Hours Sepsis New/Unexplained Change in Mental Status Sepsis Action Taken by Nursing Pulse Rate Pulse Rate [Apical] 115 H 115 H 116 H Pulse Rhythm Pulse Rhythm [Apical] Irregular Irregular Irregular Pulse Strength Pulse Strength [Apical] Respiratory Rate 19 19 16 Respiratory Effort / Characteristics Non-Labored Spontaneous Non-Labored Spontaneous Non-Labored Spontaneous Respiratory Depth Normal Normal Normal Respiratory Pattern Regular Regular Blood Pressure Blood Pressure [Right Arm] 111/72 126/77 90/57 L Blood Pressure Mean Blood Pressure Mean [Right Arm] 85 93 68 Blood Pressure Position Blood Pressure Position [Right Arm] Lying Pulse Oximetry 98 96 96 Oxygen Delivery Method Room Air Room Air Room Air 02/25/18 05:46 Temperature Temperature Source Sepsis Recent Fever Within 48 Hours Sepsis New/Unexplained Change in Mental Status Sepsis Action Taken by Nursing Pulse Rate Pulse Rate [Apical] 127 H Pulse Rhythm Pulse Rhythm [Apical] Irregular Pulse Strength Pulse Strength [Apical] Respiratory Rate 16 Respiratory Effort / Characteristics Non-Labored Spontaneous Respiratory Depth Normal Respiratory Pattern Regular Blood Pressure Blood Pressure [Right Arm] 94/63 L Blood Pressure Mean Blood Pressure Mean [Right Arm] 73 Blood Pressure Position Blood Pressure Position [Right Arm] Pulse Oximetry 97 Oxygen Delivery Method Room Air HEENT: Head - normocephalic and atraumatic Pupils are equal, round, and reactive to light. Extraocular eye muscles are intact, and sclera are anicteric. Nose - moist nasal mucosa without discharge. Mouth - dry buccal mucosa. Oropharynx is nonerythematous and there is no tonsillar exudate or edema noted. Neck: Supple; no JVD, nuchal rigidity, cervical lymphadenopathy. Heart: Irregularly irregular and tachycardic. There is a normal S1 and S2 with no murmurs, clicks, or gallops appreciated. Lungs: Clear to auscultation bilaterally with no wheezes, rales, or rhonchi. Abdomen: Soft, completely nontender, nondistended, with good bowel sounds. There are no palpable pulsatile masses or hepatosplenomegaly. There is no guarding, rigidity, or rebound noted. Extremities: No evidence of cyanosis, clubbing, or edema. There are easily palpable peripheral pulses. Skin: warm and dry with poor turgor and no rashes. Course 0301: The patient was evaluated in room C9. A complete history and physical examination were performed. Nursing notes and previous electronic medical records were reviewed. IV lock was established and labs were drawn as above. A 12-lead EKG was obtained. 0340: Cardizem 10mg IV 0421: I reevaluated and updated the patient. She feels much better but still seems anxious. Her heart rate has come down into the 80s and 90s. 0459: I rechecked the patient. She is still very anxious and her heart rate is back in the 120s. 0500: Ativan 0.5mg in 1 mls @ 1 mls/min IV 0525: I reevaluated and updated the patient. She is asleep with a heart rate in the 130s-A. fib with RVR. She is slightly hypotensive and will receive a saline bolus. 0533: Nss 500 mls @ 999 mls/hr IV 0534: Cardizem 10mg IV 0535: Upon reevaluation, the patient is stable. I discussed the results and treatment plan with the patient. She verbalizes understanding and agreement. I discussed the patient's case with FRANK Walden. The patient will be evaluated for further management and care. Consultations Consultation #1: I reviewed the patient's case with FRANK Walden. She will evaluate the patient for further management. Time: 05:34 Administered Medications Discontinued Medications Diltiazem HCl (Cardizem) 10 mg IV NOW STA Stop: 02/25/18 03:41 Last Admin: 02/25/18 03:47 Dose: 10 mg Diltiazem HCl (Cardizem) 10 mg IV NOW STA Stop: 02/25/18 05:35 Last Admin: 02/25/18 07:34 Dose: Not Given Lorazepam (Ativan) 0.5 mg in 1 mls @ 1 mls/min IV NOW STA Stop: 02/25/18 05:01 Last Admin: 02/25/18 05:05 Dose: 1 mls/min Sodium Chloride (Nss) 500 mls @ 999 mls/hr IV .Q31M ONE Stop: 02/25/18 06:03 Last Infusion: 02/25/18 06:11 Dose: 0 mls/hr Admin: 02/25/18 05:37 Dose: 999 mls/hr Cardizem 10mg IV Ativan 0.5mg in 1 mls @ 1 mls/min IV Nss 500 mls @ 999 mls/hr IV Cardizem 10mg IV Medical Decision Making Differential Diagnosis The patient is an 82 year old female who presents to the emergency department with complaints of an episode of Afib occurring last night. Differential diagnoses include: Afib with RVR, dehydration, and cardiac ischemia. Medical Records Attestation: I reviewed the patient's medical records. Home Medications Current Medication List: was personally reviewed by me Laboratory Data Attestation: I reviewed the patient's lab results. Result diagrams: 02/25/18 03:00 02/25/18 03:00 Lab Results 02/25/18 02/25/18 02/25/18 Range/Units 03:00 03:00 03:00 WBC 6.94 (4.8-10.8) K/uL RBC 3.73 L (4.2-5.4) M/uL Hgb 11.9 L (12.0-16.0) g/dL Hct 35.2 L (37-47) % MCV 94.4 (80-100) fL MCH 31.9 (25-34) pg MCHC 33.8 (32-36) g/dL RDW Std Deviation 45.4 (36.4-46.3) fL RDW Coeff of [place] 13.1 (11.5-14.5) % Plt Count 251 (130-400) K/uL MPV 10.3 (7.4-10.4) fL Immature Gran % (Auto) 0.3 % Neut % (Auto) 66.2 % Lymph % (Auto) 20.9 % [place] % (Auto) 10.7 % Eos % (Auto) 1.6 % Baso % (Auto) 0.3 % Immature Gran # (Auto) 0.02 (0.00-0.02) K/uL Neut # (Auto) 4.60 (1.4-6.5) K/uL Lymph # (Auto) 1.45 (1.2-3.4) K/uL [place] # (Auto) 0.74 H (0.11-0.59) K/uL Eos # (Auto) 0.11 (0-0.5) K/uL Baso # (Auto) 0.02 (0-0.2) K/uL PT 11.3 (9.0-12.0) Seconds INR 1.1 (0.9-1.1) APTT 29.6 (21.0-31.0) Seconds PTT Ratio 1.1 Sodium 134 L (136-145) mmol/L Potassium 3.9 (3.5-5.1) mmol/L Chloride 103 (98-107) mmol/L Carbon Dioxide 25 (21-32) mmol/L Anion Gap 6.0 (3-11) BUN 12 (7-18) mg/dl Creatinine 0.50 L (0.6-1.2) mg/dl Est Cr Clr Drug Dosing 71.2 ml/min Est GFR ( Amer) 104.5 Est GFR (Non-Af Amer) 90.1 BUN/Creatinine Ratio 23.8 H (10-20) Glucose 111 H (70-99) mg/dl Calcium 8.5 (8.5-10.1) mg/dl Magnesium 2.1 (1.8-2.4) mg/dl Total Bilirubin 0.3 (0.2-1) mg/dl AST 12 L (15-37) U/L ALT 16 (12-78) U/L Alkaline Phosphatase 48 (45-117) U/L Troponin I < 0.015 (0-0.045) ng/ml NT-Pro-B Natriuret Pep 537 (0-1800) pg/ml Total Protein 6.7 (6.4-8.2) gm/dl Albumin 3.4 (3.4-5.0) gm/dl Globulin 3.3 (2.5-4.0) gm/dl Albumin/Globulin Ratio 1.0 (0.9-2) TSH 1.420 (0.300-4.500) uIu/ml Imaging Data Attestation: I personally reviewed and interpreted this imaging study as follows : My Impression: CHEST X-RAY: Elevated left hemidiaphragm. Chronic changes. Mild interstitial edema. ECG Data Attestation: I personally reviewed and interpreted this ECG as follows: Indication: nausea Rate (beats per minute): 136 Rhythm: atrial fibrillation Comparison ECG Date: from (01/13/2018) Change: no significant change Additional Comments: Afib with RVR. Blood Pressure Blood Pressure Findings: Low blood pressure Blood Pressure Disposition: did not require urgent referral MDM Narrative The patient is an 82 year old female who presents to the emergency department with complaints of an episode of Afib occurring last night. The patient describes a history of atrial fibrillation with rapid ventricular response. She contacted her cushion sewer and he recommended taking an extra dose of metoprolol and Xarelto. The rapid heart rate and weakness persisted. The patient became very anxious. Was initially given a dose of Cardizem here in the emergency department and this brought the heart rate down nicely but she remained quite anxious. The heart rate rebounded up into the 130s and 140s. She was given a subsequent dose of Cardizem which only reduced it minimally. I discussed the case with the [facility] Hospitalist and they will evaluate for further management. Impression & Plan Atrial fibrillation with RVR Critical Care Time I have personally spent greater than 30 minutes of critical care time in the direct management of this patient. This includes bedside care, interpretation of diagnostic studies, and testing, discussion with consultants, patient, and family members, and other required patient management activities. This 30 minutes is in excess of all separately billable procedures. Critical Care Time: Yes Total Critical Care Time: 30 Discharge Plan Visit Data Chief Complaint: Cardiac Assessment ED Provider: Birgit Callahan Discharge Problem: Atrial fibrillation with RVR Patient Disposition: Being Evaluated by Hospitalist Discharge Instructions Interventions: ED Discharge Assessment Last Done: 02/25/18 07:34 The scribe's documentation has been prepared under my direction and personally reviewed by me in its entirety. I confirm that the note above accurately reflects all work, treatment, procedures, and medical decision making performed by me.
--- NOTE | 2018-02-25 07:52 | XRay Report ---
XR chest 1V portable CLINICAL HISTORY: 82 years-old Female presenting with a-Fib. TECHNIQUE: Portable upright AP view of the chest was obtained. COMPARISON: 01/13/2018. FINDINGS: Atherosclerosis of the aortic arch. Cardiac silhouette top normal in size. Bilateral hilar prominence . Heterogeneity of lung parenchyma with relative radiolucency of the upper lobes. Heterogeneous irreg ular and ill-defined opacities at the lung bases, similar to prior exam. No large effusion or pneumot horax. Suspected underlying osteopenia. Exaggerated thoracic kyphosis suspected. Upper abdomen normal . IMPRESSION: 1. Bilateral hilar prominence may be vascular in etiology suggesting either volume overload or pulmo nary hypertension. Less likely this may represent lymphadenopathy. 2. Suspected underlying emphysema or other chronic lung disease with bibasilar scarring. 3. Possible minimal increase in bibasilar opacities suggesting minimal new/increased atelectasis, sc arring, or aspiration. Electronically signed by: Sid Torres M.D. 02/25/2018 7:51 AM
[2018-02-25] MEDS ORDERED: SODIUM CHLORIDE 0.9% 1000ML 1,000 ML IV SCH (08:00)
[2018-02-25] MEDS: dilTIAZem ER 120 MG CAPCR PO SCH (08:43)
[2018-02-25] MEDS: TOCOPHERYL, DL-ALPHA 400 UNITS CAP PO SCH (08:43)
[2018-02-25] MEDS: ASCORBIC ACID 500 MG TAB PO SCH (08:43)
[2018-02-25] MEDS: METOPROLOL SUCC 50MG EXT REL TAB PO SCH ×2 (08:43→21:15)
[2018-02-25] MEDS ORDERED: NON-FORMULARY MEDICATION (Ca Carb-Ca Gluc-Mg Ox-Mg Gluco [Calcium Magnesium] 1 TAB) PO SCH (09:00)
[2018-02-25] MEDS ORDERED: RIVAROXABAN 20 MG TAB PO SCH (09:00)
[2018-02-25] MEDS: LORazepam 0.5 MG TAB PO PRN ×2 (12:25→21:22)
--- NOTE | 2018-02-25 14:39 | Cardiology Consultation ---
Date of Consultation February 25, 2018 Assessment & Plan (1) Atrial fibrillation with RVR: This is our 2nd admission for atrial fibrillation and just over a month. In the past she has had very infrequent episodes of atrial fibrillation. She notices the high heart rates but otherwise has no overt symptoms. She has been taking reduced doses of her prescribed metoprolol on an outpatient basis. It is unclear she has been taking diltiazem at all. With a return to her usual outpatient doses her overall rate control appears to be reasonable. I think if she is feeling well in her rates are reasonably controlled with ambulation on her current doses she could be discharged home. She was advised to take the full doses of her medications from now on. If her heart rates continue to be elevated we may need additional titration. In the absence of symptoms this could possibly be accomplished on an outpatient basis. I also described the importance of continuing on Xarelto. Ideally she would take this daily. Additional options aside from increased doses of medicines for rate control would be a rhythm control strategy. We discussed several rhythm control agents including amiodarone, dronedarone, sotalol and dofetilide. She seems to have an aversion to most of these for 1 reason or another. Dronedarone might be the most acceptable to the patient a months these medicines. However, it may have reduced efficacy overall. At this point in time maintaining a rate control strategy seems like the best option. (2) Valvular heart disease: Echocardiogram last month did not reveal significant changes in her known valvular disease. She does not appear to have symptoms related to valvular heart disease. This can be followed over time. History of Present Illness Reason for Consultation: Atrial fibrillation Requesting Physician: Aric Attending Physician: Margret Corbett MD History of Present Illness The patient is an 82-year-old woman with a history of paroxysmal atrial fibrillation who noticed the onset of a rapid heartbeat last evening. The patient was instructed to take extra doses of metoprolol as well as her anticoagulant, Xarelto. However, her symptoms persisted and she decided to come to [facility] Room. There she was discovered of atrial fibrillation with rapid ventricular rates. She was admitted for rate control. The patient has been under lot of stress recently regarding a possible charitable donation. Additionally she has significant discomfort in her back due to recent acupuncture procedure. Patient states that she commonly awakens at night with discomfort in her back. She has some difficulty with ambulation as result. However, she is generally fairly active. She states she is limited by an element of dyspnea with exertion as well. This appears unchanged recently. She has not been having symptoms chest discomfort or chest pain. She has not noticed dizziness or lightheadedness. She has not had presyncope or syncope. Currently she claims to be feeling well. She is no longer aware of significant tachycardia. She is anxious to ambulate around the [place]. She has not report positional dizziness. She has no symptoms of chest discomfort currently. Allergies Allergy/AdvReac Type Severity Reaction Status Date / Time epinephrine Allergy Severe TACHYCARDIA Verified 02/25/18 03:50 apixaban Allergy Unknown WEAKNESS/DIFFICULTY Verified 02/25/18 03:50 BREATHING honey Allergy Unknown ANAPHYLAXIS Verified 02/25/18 03:50 Penicillins Allergy Unknown UNKNOWN Verified 02/25/18 03:50 cyclobenzaprine AdvReac Unknown lethargy Verified 02/25/18 03:50 Flu Virus Vaccine AdvReac Intermediate "ARTHRITIS Uncoded 02/25/18 03:50 SYMPTOMS" Home Medications Home Medications Medication Instructions Recorded Confirmed Type Ca carb-Ca gluc-Mg ox-Mg gluco 1 tab PO DAILY 01/13/18 02/25/18 History [Calcium Magnesium] ascorbic acid (vitamin C) 500 mg PO DAILY 01/13/18 02/25/18 History lorazepam 0.5 mg PO DAILY PRN 01/13/18 02/25/18 History vitamin E 400 unit PO DAILY 01/13/18 02/25/18 History diltiazem HCl 120 mg PO QAM #30 cap 01/14/18 02/25/18 Rx metoprolol succinate 50 mg PO BID #60 ea 01/14/18 02/25/18 Rx rivaroxaban [Xarelto] 20 mg PO DAILY #30 tab 01/14/18 02/25/18 Rx Patient History Medical History Aortic regurgitation DVT prophylaxis Atrial fibrillation with rapid ventricular response (Acute) Patent ductus arteriosus (Resolved 06/20/11) 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 Other No significant family history Social History marital status: / marital status details: has 4 children Current Living Situation: Alone current occupational status: retired Other Information That Helps Us Care for You: No other: had PhD in Art; worked at [employer] Feels Safe at Home: Yes Safety Concerns: Feels Safe At This Time Smoking Status: Never smoker Do You Dip or Chew Tobacco: No Second Hand Exposure: No Tobacco Cessation Education Requested by Patient: No Hx Alcohol Use: Yes Alcohol type: wine Alcohol Intake Frequency: a few times a week Hx Substance Use: No Beliefs That Will Affect Care: None Communication Ability: Effective Review of Systems Complete. Pertinent positives known history of present illness. No recent subjective fevers or chills. Eating and drinking normally. No lower extremity edema. Physical Exam 2 Vital Signs (Past 24 Hours): Last Vital Signs Temp 36.4 C L 02/25/18 07:28 Pulse 134 H 02/25/18 11:05 Resp 18 02/25/18 11:05 BP 120/84 02/25/18 11:05 Pulse Ox 96 02/25/18 11:05 Physical Exam: She is alert and oriented x3. Mood affect appear normal. She answered all questions appropriately. HEENT: Sclerae are anicteric. Pupils are equal and reactive to light and accommodation. Extraocular movements were intact. Neuro: Cranial nerves intact Neck: Examination of the submandibular region did not reveal any significant lymphadenopathy. Carotids are palpable bilaterally and free of bruits on auscultation. There was no evidence of jugular venous distention. The thyroid was not enlarged. Lungs: Lungs are clear to auscultation bilaterally. There are no rales wheezes or rhonchi. She has normal respiratory effort without use of accessory muscles. There is normal pulmonary excursion. Cardiac: The rhythm was irregular. S1 and S2 were normal. Crescendo systolic murmur. The PMI was not markedly displaced on palpation. Abdomen: The abdomen was soft and nontender. Extremities: Patient has bilateral radial pulses that are equal in intensity. There is no evidence cyanosis or clubbing. There was no evidence of significant peripheral edema bilaterally. Skin: There are no rashes noted on examination today. Results & Data Laboratory Results Abnormal Lab Results 02/25/18 02/25/18 02/25/18 03:00 03:00 03:00 WBC 6.94 RBC 3.73 L Hgb 11.9 L Hct 35.2 L MCV 94.4 MCH 31.9 MCHC 33.8 RDW Std Deviation 45.4 RDW Coeff of [place] 13.1 Plt Count 251 MPV 10.3 Immature Gran % (Auto) 0.3 Neut % (Auto) 66.2 Lymph % (Auto) 20.9 [place] % (Auto) 10.7 Eos % (Auto) 1.6 Baso % (Auto) 0.3 Immature Gran # (Auto) 0.02 Neut # (Auto) 4.60 Lymph # (Auto) 1.45 [place] # (Auto) 0.74 H Eos # (Auto) 0.11 Baso # (Auto) 0.02 PT 11.3 INR 1.1 APTT 29.6 PTT Ratio 1.1 Sodium 134 L Potassium 3.9 Chloride 103 Carbon Dioxide 25 Anion Gap 6.0 BUN 12 Creatinine 0.50 L Est Cr Clr Drug Dosing 71.2 Est GFR ( Amer) 104.5 Est GFR (Non-Af Amer) 90.1 BUN/Creatinine Ratio 23.8 H Glucose 111 H Calcium 8.5 Phosphorus Magnesium 2.1 Total Bilirubin 0.3 AST 12 L ALT 16 Alkaline Phosphatase 48 Troponin I < 0.015 NT-Pro-B Natriuret Pep 537 Total Protein 6.7 Albumin 3.4 Globulin 3.3 Albumin/Globulin Ratio 1.0 TSH 1.420 02/25/18 02/25/18 07:57 12:01 WBC RBC Hgb Hct MCV MCH MCHC RDW Std Deviation RDW Coeff of [place] Plt Count MPV Immature Gran % (Auto) Neut % (Auto) Lymph % (Auto) [place] % (Auto) Eos % (Auto) Baso % (Auto) Immature Gran # (Auto) Neut # (Auto) Lymph # (Auto) [place] # (Auto) Eos # (Auto) Baso # (Auto) PT INR APTT PTT Ratio Sodium Potassium Chloride Carbon Dioxide Anion Gap BUN Creatinine Est Cr Clr Drug Dosing Est GFR ( Amer) Est GFR (Non-Af Amer) BUN/Creatinine Ratio Glucose Calcium Phosphorus 3.3 Magnesium Total Bilirubin AST ALT Alkaline Phosphatase Troponin I 0.043 NT-Pro-B Natriuret Pep Total Protein Albumin Globulin Albumin/Globulin Ratio TSH Diagnostic Findings Chest x-ray obtained at the time of admission suggest and possible volume overload or pulmonary hypertension. Marker kyphosis. Echocardiogram performed 09/06/2015 revealed preserved LV systolic function with moderate concentric LVH. Mild valvular aortic stenosis mild to moderate aortic regurgitation. Mild mitral regurgitation. Echocardiogram performed approximately 1 month ago revealed similar findings.
--- NOTE | 2018-02-25 16:43 | Discharge Summary ---
Date of Service February 26, 2018 Admission HPI Per Admitting Provider Mrs. Sanchez is an 82yo C female with history of PAF, repair of coarctation of the aorta in 1954 an anxiety presenting with AF with RVR. Patient states that this evening around 23:00 she felt chills then noticed palpitations and rapid heart rate. She called Dr. Ye Barajas and was instructed to take metoprolol 100mg PO and a Xarelto. She took these medications and decided to come to the ER because she remained in AF. Of note, patient does not take her Diltiazem or Xarelto daily. She has had infrequent episodes of atrial fibrillation. Presently states she feels very tired, otherwise no complaints. She denies CP, SOB, dizziness, nausea, vomiting, diarrhea or constipation. No additional complaints at this time ER Course: Diltiazem 10mg IV, Ativan 0.5mg IV, NSS x 500mL Admission Exam Per Admitting Provider General: patient resting comfortably, NAD, non-toxic in appearance, AA&O x 4 Skin: warm, dry, intact, no rashes or lesions HEENT: NC/AT, PERRL, EOMI, anicteric sclera, conjunctiva without injection, external ear normal to inspection and nontender, nares patent, moist mucus membranes, dentition intact, no oropharyngeal lesions, neck supple, trachea midline, no LAD, no thyromegaly, no JVD Heart: +S1/S2, irregularly irregular, 2/6 GUERRERO across precordium Lungs: equal air entry bilaterally, no rales/rhonchi/wheezes Abd: +BS, soft, NT/ND, no masses/organomegaly/ascites Ext: warm, 2+ pulses in UE/LE bilaterally, no clubbing/cyanosis or edema Neuro: nonfocal, patient AA&O x 4, speech intact, no facial droop, moving all extremities on command with equal strength 5/5 Principal Diagnosis Atrial Fibrillation with RVR Discharge Exam General: In moderate distress, pacing in room. HEENT: NC/AT; PERRLA with EOMI; [place] conjunctiva, MMM. Neck: Supple and nontender Cardiac: +Tachycardia, irregular. Lungs: CTA bilaterally Abdomen: Bowel normoactive X 4; Nontender to palpation Extremities: Warm. No edema present Neuro: No focal weakness; appeared anxious, in distress but was alert and oriented x3. Skin: No rash Discharge Data Allergies Allergy/AdvReac Type Severity Reaction Status Date / Time epinephrine Allergy Severe TACHYCARDIA Verified 02/25/18 03:50 apixaban Allergy Unknown WEAKNESS/DIFFICULTY Verified 02/25/18 03:50 BREATHING honey Allergy Unknown ANAPHYLAXIS Verified 02/25/18 03:50 Penicillins Allergy Unknown UNKNOWN Verified 02/25/18 03:50 cyclobenzaprine AdvReac Unknown lethargy Verified 02/25/18 03:50 Flu Virus Vaccine AdvReac Intermediate "ARTHRITIS Uncoded 02/25/18 03:50 SYMPTOMS" Consultations 02/25/18 05:34 ED Decision to Admit Stat 02/25/18 07:46 Consult Cardiology Routine Hospital Course (1) Atrial fibrillation with RVR: Patient presented with A. fib with RVR. She recently discontinued her Cardizem at the beginning of Feb 2018 and has been taking Metoprolol 50 mg BID. Pt. also takes Xarelto at home as needed during episodes of A. fib. She developed a rapid heart beat last evening and called her scrap baler Dr. Barajas. He instructed her to take Xarelto. She then presented to the ER with A. fib with RVR and hypotension. Pt. received Cardizem 10 mg IV in the ER with improvement in rate control. She was admitted to telemetry. Home dose of Cardizem (120 mg qAM) and Metoprolol 50 mg BID were continued. Xarelto was also started at 20 mg daily. Cardiology was consulted and recommended continuing all three medications on a daily basis at discharge (as opposed to taking on a as needed basis). EKG on admission showed A. fib with RVR, changes in the inferior leads. Troponin was mildly increased to 0.043 -- discussed with cardiology, is not concerning for ischemia. HR had improved over the course of the day and she was bradycardic in the afternoon with mild hypotension. Bradycardia/hypotension improved and she was considered stable for discharge on 02/25/2018. She did not have transportation available on 02/25/18, therefore she remained inpatient overnight. Pt. was doing well on 02/26/2018. HR was controlled, remained in A. Fib. She was stable for discharge to home on 02/26/2018 and will follow up with Dr. Barajas in 1-2 weeks. (2) Anxiety: Pt was extremely anxious during this admission. She was refusing Ativan in the beginning of admission due to concern for addiction to medication. She did receive Ativan 0.5 mg x 1 dose with improvement. (3) Patent ductus arteriosus: S/p repair. (4) Aortic regurgitation: Visualized on TTE. (5) History of repair of coarctation of aorta: Status post repair in 1954. (6) DVT prophylaxis: Xarelto was ordered. Pt. was stable for discharge on 02/26/2018. Total Time Total Time Spent Total Time Spent (In Minutes): >30 minutes Total Time Includes: Examination of the Patient, Discharge Planning, Medication Reconciliation, Communication With Other Providers and Other Discharge Plan Discharge Items Patient Disposition: Home - Self-Care Reason For Visit: AF WITH RVR Discharge Diagnosis: Atrial Fibrillation with RVR Condition: Fair Discharge Goals: Diagnostic testing, Improve disease control, Improve function, Increase independence and Prevent disease Activity: As commented below Exercise/Sports: Gradually increase as tolerated Non-emergency contact: Primary Care Provider and [employer] Builder Apprentice Call non-emergency contact if: you have any medication questions, your symptoms worsen, your pain is worsening and you have a fever Follow-up/Referrals: Sid Haney MD [Primary Care Provider] - 02/28/18 9:30 am (Please, follow up with Dr. Sid Haney on SaturdayFebruary 28 at 9:30 am. *If you need to change this appointment, call the office at [phone].) Abdiel Barajas MD [Physician] - 03/18/18 10:30 am (Please schedule an appointment with Dr. Barajas in 1-2 weeks. ) Diet: Regular Addtl Provider Instructions: 1. Atrial Fibrillation with RVR * Cardiology was consulted during this admission. Please follow these recommendations: - Resume Metoprolol 50 mg twice daily as prescribed. - Please take Cardizem 120 mg in the morning on a daily basis. New prescription was sent to [facility]. - Please take Xarelto 20 mg daily -- this medication should also be taken with dinner as per cardiology. - Please schedule an appointment with Dr. Barajas in 1-2 weeks. 2. Call your scrap baler, primary care physician or go to the ER if you develop the following: * Chest pain or shortness of breath. * Rapid heart beat. 3. Please schedule an appointment with your primary care provider in 1-2 weeks. Prescriptions: New rivaroxaban [Xarelto] 20 mg Tablet 20 mg PO QDD 1 Days Qty: 1 RF: 0 Continue diltiazem HCl 120 mg Capsule,Extended Release 24hr 120 mg PO QAM 30 Days Qty: 30 RF: 1 lorazepam 0.5 mg tablet 0.5 mg PO DAILY PRN (Reason: Anxiety) RF: 0 vitamin E 400 unit Capsule 400 unit PO DAILY RF: 0 Ca carb-Ca gluc-Mg ox-Mg gluco [Calcium Magnesium] 500 mg calcium -250 mg Tablet 1 tab PO DAILY RF: 0 ascorbic acid (vitamin C) 500 mg Capsule 500 mg PO DAILY RF: 0 metoprolol succinate 50 mg capsule,sprinkle,ER 24hr 50 mg PO BID Qty: 60 RF: 1 Discontinued rivaroxaban [Xarelto] 20 mg Tablet 20 mg PO DAILY Qty: 30 RF: 1 Visit Report Forms: [facility] Portal Stand-Alone Forms: [facility] Discharge Orders: Discharge Order (Routine); Ordered 02/26/18 Ordered By: Stephanie Crow Admission Data Admit Date/Time: 02/25/18 05:58 Attending Provider: Margret Corbett Admit Provider: Carissa Meza Primary Care Provider: Sid Haney Other Providers: Carissa Meza ; Abdiel Barajas Service: Telemetry Other Interventions: Discharge Summary Assessment (RN) Last Done: 02/26/18 10:57 Pending Studies at Discharge: No DC Date/Time DO NOT enter until pt leaves facility: 02/26/18 11:45 Supervising Physician Co-Signing Physician Notes PA Supervision Note: I personally saw and examined the patient. I verified all madsen points and agree with KIMANI Crow with the following exceptions and/or additions: Patient doing very well, had no complaints, rates were controlled on telemetry and blood pressure was improved. Vitals reviewed NAD, alert awake oriented x3 Anicteric sclerae No respiratory distress 82-year-old female here with rapid atrial fibrillation, now rate controlled with continuing diltiazem, Toprol-XL, and anticoagulate with Xarelto -Follow-up with cardiology as an outpatient Stable for discharge
--- NOTE | 2018-02-25 20:03 | Communication Note ---
Date of Service: February 25, 2018 Pt. was admitted for A. fib with RVR. Heart rate improved with Cardizem 120 mg & Metoprolol 50 mg this morning. She was bradycardic this afternoon with HR 40- 50's and hypotension. HR now improved and pt. is normotensive. Cardiology consulted, plan to continue Cardizem 120 mg qAM, Metoprolol 50 BID and Xarelto 20 mg daily at home scheduled (pt. was previously only taking BB as prescribed) . EKG showed new T wave inversion in the inferior leads. Initial troponin was negative, repeat troponin was 0.043. Discussed with cardiology, is not concerning for ischemia. Pt. denied cardiac symptoms, including chest pain or SOB. She was stable for discharge this evening but did not have transportation home. Will continue to monitor HR and BP overnight -- discharge likely tomorrow. PA Supervision Note: I personally saw and examined the patient. I verified all madsen points and agree with KIMANI Crow with the following exceptions and/or additions: Patient doing very well this evening, but did not have a ride home. Her rates are now controlled, blood pressures are stable she is. She is ambulating without lightheadedness. Vitals reviewed Gen: AAOx3, NAD HEENT: Anicteric sclerae, EOMI CV: Irregularly irregular, 2/6 GUERRERO at the RUSB nl S1S2 Pulm: CTAB no wcr Abd: +BS soft NT ND no masses or hernias Ext: No edema, 2+ DP pulses Skin: No rashes, warm/dry Neuro: Full strength throughout 82-year-old female here with rapid atrial fibrillation that is paroxysmal in nature, plan to change her as needed meds to daily standing meds of diltiazem, Toprol-XL, and Xarelto -Plan for discharge tomorrow if remains stable
[2018-02-25] MEDS: DOCUSATE SODIUM 100 MG CAP PO SCH (21:15)
[2018-02-26 07:17] LABS: Hematocrit (blood only) 33.9 % (37-47); Hemoglobin 11.4 g/dL (12.0-16.0); Mean Corpuscular Hgb Conc 33.6 g/dL (32-36); Mean Corpuscular Volume 94.7 fL (80-100); Mean Platelet Volume 10.3 fL (7.4-10.4); Platelet Count 253 K/uL (130-400); RDW Coefficient of Variation 13.3 % (11.5-14.5); RDW Standard Deviation 46.6 fL (36.4-46.3); Red Blood Count 3.58 M/uL (4.2-5.4); White Blood Count 6.99 K/uL (4.8-10.8)
[2018-02-26] MEDS: METOPROLOL SUCC 50MG EXT REL TAB PO SCH (07:28)
[2018-02-26] MEDS: DOCUSATE SODIUM 100 MG CAP PO SCH (07:28)
[2018-02-26] MEDS: dilTIAZem ER 120 MG CAPCR PO SCH (07:29)
[2018-02-26] MEDS: TOCOPHERYL, DL-ALPHA 400 UNITS CAP PO SCH (07:29)
[2018-02-26 07:42] LABS: BUN Creatinine Ratio 16.4 (10-20); Calcium 8.3 mg/dl (8.5-10.1); Creatinine Clr Calc Pharmacy 66.8 ml/min; Est GFR (African American) 105.2; Est GFR (Non-African American) 90.7; Potassium 3.9 mmol/L (3.5-5.1)
[2018-02-26] MEDS: ASCORBIC ACID 500 MG TAB PO SCH (08:38)
[2018-02-26] MEDS ORDERED: RIVAROXABAN 20 MG TAB PO SCH (16:30)
== END 2018-02-26 11:45 | disposition home or self-care (01) | DRG 310 ==
LOC: ED 02:49 → SUATTDRO 05:58 → 2S 05:58